=== PATIENT | male | born 1945 ===

== ENCOUNTER 2017-11-27 17:36 | Inpatient (IN) | payer MEDICARE, MEDICAID ==
[2017-11-27] MEDS ORDERED: Morphine 4 MG/ML VIAL IV STA (19:24)
[2017-11-27] MEDS ORDERED: Morphine 4 MG/ML VIAL ONE ×2 (19:35→22:05)
[2017-11-27 19:38] LABS: BASO # 0.1 K/uL (0.0-0.2); BASO % 0.4 % (0.0-2.0); EOS # 0.3 K/uL (0.0-0.7); EOS % 1.7 % (0.0-4.0); LYMPH # 1.2 K/uL (1.0-4.3); LYMPH % 6.5 % (20.0-40.0); MEAN CELL VOLUME 94.2 fL (80.0-94.0); MEAN CORPUSCULAR HEMOGLOBIN 30.1 pg (27.0-31.0); MEAN CORPUSCULAR HGB CONC 31.9 g/dL (33.0-37.0); MEAN PLATELET VOLUME 8.1 fL (7.2-11.7); MONO # 1.1 K/uL (0.0-0.8); MONO % 5.7 % (0.0-10.0); NEUT # 15.9 K/uL (1.8-7.0); NEUT % 85.7 % (50.0-75.0); NRBC % 0.1 % (0.0-2.0); RBC 2.09 Mil/uL (4.40-5.90); RED CELL DISTRIBUTION WIDTH 17.8 % (11.5-14.5)
[2017-11-27 19:41] LABS: INR 1.2
[2017-11-27 19:43] LABS: VENOUS BLOOD GAS BASE EXCESS 1.5 mmol/L (0.0-2.0); VENOUS BLOOD GAS PCO2 43 mmHg (40-60); VENOUS BLOOD GAS PO2 25 mm/Hg (30-55)
[2017-11-27 19:50] LABS: HEMOGLOBIN 6.3 g/dL (12.0-18.0)
[2017-11-27 19:51] LABS: PLATELET COUNT 642 K/uL (130-400); WHITE BLOOD COUNT 18.5 K/uL (4.8-10.8)
[2017-11-27 19:56] LABS: ALB/GLOB RATIO 0.8 (1.0-2.1); ALT/SGPT 44 U/L (21-72); AST/SGOT 39 U/L (17-59); BLOOD UREA NITROGEN 22 mg/dL (9-20); CALCIUM 8.4 mg/dl (8.6-10.4); GFR AFRICAN-AMERICAN > 60; GFR NON-AFRICAN AMERICAN > 60
[2017-11-27] MEDS ORDERED: Morphine 4 MG/ML VIAL IVP PRN (20:37)
[2017-11-27 20:41] LABS: BANDS 1 % (0-2); EOSINOPHIL 3 % (0-4); LYMPHOCYTE 3 % (20-40); MONOCYTE 6 % (0-10); NEUTROPHIL 87 % (50-75); TOTAL CELLS COUNTED 100
[2017-11-27 20:42] LABS: ANISOCYTOSIS SLIGHT; HYPOCHROMIC SLIGHT; PLATELET ESTIMATE INCREASED (NORMAL)
[2017-11-27 20:43] LABS: POLYCHROMIC SLIGHT
--- NOTE | 2017-11-27 20:43 | CP.PCM.HP ---
Addendum entered and electronically signed by Pawan Menjivar DO 11/28/17 03:57: incorrectly stated no elevation in WBC; WBC is 18.5 patient receiving blood products late due to cat scan of LLE w/ contrast; please refer to full report Original Note: <Pawan Menjivar - Last Filed: 11/27/17 21:16> History of Present Illness - History of Present Illness History of Present Illness: CC: None; abnormal labs at care home PMD: states he does not remember Code Status: DNR/DNI; patient is currently lucid, ANOx3, with intact decision making responsibilities; states that son does not make medical decisions for him but if he becomes impaired that he can. Number in computer. This patient is a 72yo [place] Speaking M coming from the care home for abnormal labs. He states he feels fine, and upon questioning is complaining of a nonproductive cough for the past week. He states it is not associated with fevers/chills, [place], CP, SOB, abdominal pain, N/V/D, dysuria/freq/urg, or lower extremity pain. 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 PMHx: peripheral vascular disease s/p RLE AKA 1 year ago, left leg has femoral graft in place which clotted on last admission and AKA on last admission 2017, chronic left foot pressure ulcer, COPD, history of dementia and a left frontal CVA with speech defecits BPH PSHx: RLE AKA 2017, LLE AKA 2018 on last admission Meds: please refer to MAR All: NKDA SHx: As per charts: strong smoking history; denies current smoking at care home, needs help with most ADL not independent in ADL; has sacral ulcer stage 1 on back covered FHx: Unremarkable. Present on Admission - Present on Admission Any Indicators Present on Admission: Yes History of DVT/PE: Yes History of Uncontrolled Diabetes: No Urinary Catheter: No Decubitus Ulcer Present: Yes (above buttocks, stage 1/2) Decubitus Ulcer Stage: I Past Patient History - Infectious Disease Hx of Infectious Diseases: None - Past Social History Smoking Status: Heavy Smoker > 10 Cigarettes Daily - CARDIAC Hx Cardiac Disorders: Yes - PULMONARY Hx Chronic Obstructive Pulmonary Disease (COPD): Yes - NEUROLOGICAL HX Cerebrovascular Accident: Yes (LEFT FRONTAL CVA) - INTEGUMENTARY Hx Last: Yes - MUSCULOSKELETAL/RHEUMATOLOGICAL Hx Falls: No Other/Comment: B/L BKA - GASTROINTESTINAL Hx Constipation: Yes Hx Ulcer: Yes (gastric) - GENITOURINARY/GYNECOLOGICAL Hx Genitourinary Disorders: Yes - PSYCHIATRIC Hx Psychophysiologic Disorder: Yes Hx Substance Use: No - SURGICAL HISTORY Hx Amputation: Yes (b/l BKA) - ANESTHESIA Hx Anesthesia: Yes Hx Anesthesia Reactions: No Hx Malignant Hyperthermia: No Meds Allergies/Adverse Reactions: Allergies Allergy/AdvReac Type Severity Reaction Status Date / Time No Known Allergies Allergy Verified 11/27/17 17:56 Physical Exam - Constitutional Appears: Non-toxic, Chronically Ill (patient is moaning at baseline, states he is not in pain, but he has made sounds like this for many years) - Head Exam Head Exam: NORMAL INSPECTION - Eye Exam Eye Exam: EOMI, PERRL, Scleral icterus - ENT Exam ENT Exam: Mucous Membranes Moist - Neck Exam Neck exam: Positive for: Full Rom, Normal Inspection. Negative for: Lymphadenopathy, Meningismus, Thyromegaly - Respiratory Exam Respiratory Exam: Rhonchi, NORMAL BREATHING PATTERN. absent: Chest Wall Tenderness, Decreased Breath Sounds, Clear to Auscultation Bilateral, Rales, Wheezes, Respiratory Distress, Stridor - Cardiovascular Exam Cardiovascular Exam: REGULAR RHYTHM, +S1, +S2 - GI/Abdominal Exam GI & Abdominal Exam: Normal Bowel Sounds, Soft. absent: Organomegaly (white rash, non blanching, non pruritic, negative nikolsky sign all over abdomen looks like old tape ) - Rectal Exam Rectal Exam: Deferred - Extremities Exam Additional comments: b/l AKA on both sides RLE well healed AKA, no signs of erythema exudate/pain LLE AKA however still has denita in place, large hematoma/ecchymosis present, bleeding slightly onto the sheets, no signs of pus/pain - Back Exam Back exam: NORMAL INSPECTION. absent: CVA tenderness (L), CVA tenderness (R) - Neurological Exam Neurological exam: Alert, Oriented x3 (patient is alert oriented to person place and prachi e) - Psychiatric Exam Psychiatric exam: Anxious (patient is moaning, however responds appropriately to questions, states that moaning is baseline, and that he is not agitated and that this is normal for him) - Skin Skin Exam: Warm (patient is warm to touch) Results - Vital Signs Recent Vital Signs: Last Vital Signs Temp 98 F 11/27/17 17:46 Pulse 96 H 11/27/17 17:46 Resp 20 11/27/17 17:46 BP 131/49 L 11/27/17 19:40 Pulse Ox 100 11/27/17 17:46 - Labs Result Diagrams: 11/27/17 19:30 11/27/17 19:30 Labs: Laboratory Results - last 24 hr 11/27/17 11/27/17 11/27/17 19:30 19:30 19:30 WBC 18.5 H D RBC 2.09 L Hgb 6.3 L* D Hct 19.7 L MCV 94.2 H D MCH 30.1 MCHC 31.9 L RDW 17.8 H Plt Count 642 H D MPV 8.1 Neut % (Auto) 85.7 H Lymph % (Auto) 6.5 L [place] % (Auto) 5.7 Eos % (Auto) 1.7 Baso % (Auto) 0.4 Neut # (Auto) 15.9 H Lymph # (Auto) 1.2 [place] # (Auto) 1.1 H Eos # (Auto) 0.3 Baso # (Auto) 0.1 PT 13.0 H INR 1.2 APTT 31 pO2 VBG pH VBG pCO2 VBG HCO3 VBG Total CO2 VBG O2 Sat (Calc) VBG Base Excess VBG Potassium Glucose Lactate Sodium 140 Potassium 4.2 Chloride 103 Carbon Dioxide 23 Anion Gap 18 BUN 22 H Creatinine 0.7 L Est GFR ( Amer) > 60 Est GFR (Non-Af Amer) > 60 Random Glucose 151 H Calcium 8.4 L Total Bilirubin 0.8 AST 39 ALT 44 Alkaline Phosphatase 163 H D Total Protein 6.9 Albumin 3.0 L Globulin 3.8 Albumin/Globulin Ratio 0.8 L Venous Blood Potassium 11/27/17 19:35 WBC RBC Hgb Hct MCV MCH MCHC RDW Plt Count MPV Neut % (Auto) Lymph % (Auto) [place] % (Auto) Eos % (Auto) Baso % (Auto) Neut # (Auto) Lymph # (Auto) [place] # (Auto) Eos # (Auto) Baso # (Auto) PT INR APTT pO2 25 L VBG pH 7.40 VBG pCO2 43 VBG HCO3 24.7 VBG Total CO2 27.9 VBG O2 Sat (Calc) 42.1 VBG Base Excess 1.5 VBG Potassium 4.0 Glucose 165 H Lactate 2.0 Sodium 141.0 Potassium Chloride 109.0 H Carbon Dioxide Anion Gap BUN Creatinine Est GFR ( Amer) Est GFR (Non-Af Amer) Random Glucose Calcium Total Bilirubin AST ALT Alkaline Phosphatase Total Protein Albumin Globulin Albumin/Globulin Ratio Venous Blood Potassium 4.0 Assessment & Plan - Assessment and Plan (Free Text) Assessment: 72yo M admitted for acute anemia with elevated lactate and temperature (code sepsis) Acute Anemia most likely from AKA LLE -on exam ecchymotic, denita in place, bleeding slightly onto the sheets -will hold all anticoagulation for now -Vascular Surgery; Dr. Padilla; appreciate help -HgB currently 6.8; will transfuse 2 units; patient normally around 9-10 -will f/u CBC serially -telemetry -patient otherwise stable with no complaints -rectal exam showed no blood; will f/u FOBT Code Sepsis -unknown source of infection -tachycardic most likely from blood loss, no elevated WBC, no pain on exam; lactate probably from acute blood loss as well -Chest X-Ray shows no obvious infiltrate -f/u UA -f/u blood culture -f/u procalcitonin -will give empiric Vancomycin 1g Q12H and Zosyn 3.375 Q6H PAD; chronic -will be holding anticoagulation for now -appreciate vascular surgery recs Sacral Ulcer; stage 1; chronic -wound care -patient is bed bound -reposition every 2 hours -PT/OT eval and treat Proph -GI prophylaxis not indicated -contraindication to anticoagulation with low hgb discussed with Dr. Abigail Menjivar PGY2 Decision To Admit - Pt Status Changed To: Hospital Disposition Of: Inpatient - Admit Certification Admit to Inpatient:: After my assessment, the patient will require hospitalization for at least two midnights. This is because of the severity of symptoms shown, intensity of services needed, and/or the medical risk in this patient being treated as an outpatient. - InPatient: Physician Admission Certification:: patient with AKA LLE sepsis acute blood loss - . Bed Request Type: Telemetry Admitting Physician: Maurizio Hayes <Maurizio Hayes - Last Filed: 11/28/17 06:00> Results - Vital Signs Recent Vital Signs: Last Vital Signs Temp 98.6 F 11/28/17 05:35 Pulse 99 H 11/28/17 05:35 Resp 20 11/28/17 05:35 BP 118/72 11/28/17 05:35 Pulse Ox 20 L 11/28/17 05:39 - Labs Result Diagrams: 11/27/17 19:30 11/27/17 19:30 Labs: Laboratory Results - last 24 hr 11/27/17 11/27/17 11/27/17 19:30 19:30 19:30 WBC 18.5 H D RBC 2.09 L Hgb 6.3 L* D Hct 19.7 L MCV 94.2 H D MCH 30.1 MCHC 31.9 L RDW 17.8 H Plt Count 642 H D MPV 8.1 Neut % (Auto) 85.7 H Lymph % (Auto) 6.5 L [place] % (Auto) 5.7 Eos % (Auto) 1.7 Baso % (Auto) 0.4 Neut # (Auto) 15.9 H Lymph # (Auto) 1.2 [place] # (Auto) 1.1 H Eos # (Auto) 0.3 Baso # (Auto) 0.1 Neutrophils % (Manual) 87 H Band Neutrophils % 1 Lymphocytes % (Manual) 3 L Monocytes % (Manual) 6 Eosinophils % (Manual) 3 Platelet Estimate Increased H Polychromasia Slight Hypochromasia (manual) Slight Anisocytosis (manual) Slight PT 13.0 H INR 1.2 APTT 31 pO2 VBG pH VBG pCO2 VBG HCO3 VBG Total CO2 VBG O2 Sat (Calc) VBG Base Excess VBG Potassium Glucose Lactate Sodium 140 Potassium 4.2 Chloride 103 Carbon Dioxide 23 Anion Gap 18 BUN 22 H Creatinine 0.7 L Est GFR ( Amer) > 60 Est GFR (Non-Af Amer) > 60 Random Glucose 151 H Calcium 8.4 L Total Bilirubin 0.8 AST 39 ALT 44 Alkaline Phosphatase 163 H D Total Protein 6.9 Albumin 3.0 L Globulin 3.8 Albumin/Globulin Ratio 0.8 L Venous Blood Potassium Urine Color Urine Clarity Urine pH Ur Specific [place] Urine Protein Urine Glucose (UA) Urine Ketones Urine Blood Urine Nitrate Urine Bilirubin Urine Urobilinogen Ur Leukocyte Esterase Urine WBC (Auto) Urine RBC (Auto) Ur Squamous Epith Cells Urine Bacteria Blood Type Antibody Screen Antibody Identification Antibody ID (Elution) ARIANNE, Poly Interpret 11/27/17 11/27/17 11/27/17 19:35 20:24 20:37 WBC RBC Hgb Hct MCV MCH MCHC RDW Plt Count MPV Neut % (Auto) Lymph % (Auto) [place] % (Auto) Eos % (Auto) Baso % (Auto) Neut # (Auto) Lymph # (Auto) [place] # (Auto) Eos # (Auto) Baso # (Auto) Neutrophils % (Manual) Band Neutrophils % Lymphocytes % (Manual) Monocytes % (Manual) Eosinophils % (Manual) Platelet Estimate Polychromasia Hypochromasia (manual) Anisocytosis (manual) PT INR APTT pO2 25 L VBG pH 7.40 VBG pCO2 43 VBG HCO3 24.7 VBG Total CO2 27.9 VBG O2 Sat (Calc) 42.1 VBG Base Excess 1.5 VBG Potassium 4.0 Glucose 165 H Lactate 2.0 Sodium 141.0 Potassium Chloride 109.0 H Carbon Dioxide Anion Gap BUN Creatinine Est GFR ( Amer) Est GFR (Non-Af Amer) Random Glucose Calcium Total Bilirubin AST ALT Alkaline Phosphatase Total Protein Albumin Globulin Albumin/Globulin Ratio Venous Blood Potassium 4.0 Urine Color Yellow Urine Clarity Hazy Urine pH 5.0 Ur Specific [place] 1.027 Urine Protein 1+ H Urine Glucose (UA) Normal Urine Ketones Trace Urine Blood Negative Urine Nitrate Negative Urine Bilirubin Negative Urine Urobilinogen 4.0 Ur Leukocyte Esterase Trace Urine WBC (Auto) 10 H Urine RBC (Auto) 1 Ur Squamous Epith Cells 2 Urine Bacteria Rare Blood Type O POSITIVE Antibody Screen Positive Antibody Identification Anti Jka Antibody ID (Elution) WARM AUTO ANTIBODY ARIANNE, Poly Interpret Positive H 11/27/17 22:30 WBC RBC Hgb Hct MCV MCH MCHC RDW Plt Count MPV Neut % (Auto) Lymph % (Auto) [place] % (Auto) Eos % (Auto) Baso % (Auto) Neut # (Auto) Lymph # (Auto) [place] # (Auto) Eos # (Auto) Baso # (Auto) Neutrophils % (Manual) Band Neutrophils % Lymphocytes % (Manual) Monocytes % (Manual) Eosinophils % (Manual) Platelet Estimate Polychromasia Hypochromasia (manual) Anisocytosis (manual) PT INR APTT pO2 20 L VBG pH 7.42 VBG pCO2 43 VBG HCO3 25.4 VBG Total CO2 29.2 H VBG O2 Sat (Calc) 35.4 L VBG Base Excess 2.9 H VBG Potassium 4.2 Glucose 143 H Lactate 1.1 Sodium 142.0 Potassium Chloride 112.0 H Carbon Dioxide Anion Gap BUN Creatinine Est GFR ( Amer) Est GFR (Non-Af Amer) Random Glucose Calcium Total Bilirubin AST ALT Alkaline Phosphatase Total Protein Albumin Globulin Albumin/Globulin Ratio Venous Blood Potassium 4.2 Urine Color Urine Clarity Urine pH Ur Specific [place] Urine Protein Urine Glucose (UA) Urine Ketones Urine Blood Urine Nitrate Urine Bilirubin Urine Urobilinogen Ur Leukocyte Esterase Urine WBC (Auto) Urine RBC (Auto) Ur Squamous Epith Cells Urine Bacteria Blood Type Antibody Screen Antibody Identification Antibody ID (Elution) ARIANNE, Poly Interpret Assessment & Plan - Date & Time Date: 11/28/17 (I have seen and examined the patient. I agree with the findings and plan of care as documented by Dr. Menjivar. Patient with acute anemia. Hemoccult negative. Transfuse 2 units PRBCs. Blood and dried blood noted from AKA site. Appears red and irritated at denita. Code sepsis called in ED. Ripo and Marie for now. Blood cultures. Hemodynamically stable. Monitor for acute changes.) Time: 05:58 Attending/Attestation - Attestation I have personally seen and examined this patient.: Yes I have fully participated in the care of the patient.: Yes I have reviewed all pertinent clinical information: Yes
[2017-11-27 20:52] LABS: SQUAMOUS EPITHIAL 2 /hpf (0-5); URINE BACTERIA RARE (<OCC); URINE BILIRUBIN NEGATIVE (NEGATIVE); URINE BLOOD NEGATIVE (NEGATIVE); URINE CLARITY Hazy (Clear); URINE GLUCOSE (UA) NORMAL (Normal); URINE LEUKOCYTE ESTERASE TRACE Leu/uL (Negative); URINE PROTEIN 1+ mg/dL (NEGATIVE)
[2017-11-27 20:55] LABS: URINE COLOR YELLOW (YELLOW)
[2017-11-27] MEDS ORDERED: Vancomycin 1 gm/NS 200 ml 1 GM/200 ML BAG IVPB ONE (21:00)
[2017-11-27 22:37] LABS: VENOUS BLOOD GAS BASE EXCESS 2.9 mmol/L (0.0-2.0); VENOUS BLOOD GAS PCO2 43 mmHg (40-60); VENOUS BLOOD GAS PO2 20 mm/Hg (30-55); VENOUS BLOOD PH 7.42 (7.32-7.43)
--- NOTE | 2017-11-28 00:58 | C.PDOC ---
History Of Present Illness 72 year old male sent [facility] ER by [facility] for "abnormal labs". Patient had blood drawn today which showed elevated WBC and low hemoglobin. Patient has a Hx of left AKA and offers no complaints at this time; there is no record of fever as per [facility]. Patient is a poor historian. Chief Complaint (Nursing): Abnormal Labs History Per: Patient History/Exam Limitations: no limitations Onset/Duration Of Symptoms: Days Current Symptoms Are (Timing): Still Present Recent travel outside of the [place]: No Past Medical History Reviewed: Historical Data, Nursing Documentation, Vital Signs Vital Signs: Last Vital Signs Temp 98.5 F 11/28/17 04:35 Pulse 114 H 11/28/17 04:35 Resp 20 11/28/17 04:35 BP 122/68 11/28/17 04:35 Pulse Ox 20 L 11/28/17 01:26 - Medical History PMH: COPD, CVA, Dementia - [facility] Procedures DETACHMENT AT LEFT UPPER LEG, LOW, OPEN APPROACH (10/07/17) Family History: States: Unknown Family Hx - Social History Hx Alcohol Use: No Hx Substance Use: No - Immunization History Hx Influenza Vaccination: Yes (2017) Hx Pneumococcal Vaccination: Yes (2017) Review Of Systems Constitutional: Negative for: Fever Cardiovascular: Negative for: Chest Pain, Palpitations Respiratory: Negative for: Cough, Shortness of Breath Gastrointestinal: Negative for: Nausea, Vomiting Musculoskeletal: Positive for: Other (Left AKA) Physical Exam - Physical Exam Appears: Non-toxic Skin: Warm, Dry Head: Atraumatic, Normacephalic Eye(s): bilateral: Conjunctiva Pale Oral Mucosa: Moist Chest: Symmetrical, No Tenderness Cardiovascular: Rhythm Regular Respiratory: Normal Breath Sounds, No Rales, No Rhonchi, No Wheezing Gastrointestinal/Abdominal: Soft, No Tenderness Rectal: Rectal Tone (Good), Other (Guaiac negative. Brown stools) Male Genital: Other (Left AKA with surgical denita, skin break down and ecchymosis around denita) Neurological/Psych: Oriented x3, Normal Speech ED Course And Treatment - Laboratory Results Result Diagrams: 11/27/17 19:30 11/27/17 19:30 ECG: Interpreted By Me, Viewed By Me ECG Rhythm: Sinus Bradycardia ECG Interpretation: Normal Interpretation Of ECG: Left axis deviation, 1st degree av block Rate From EC O2 Sat by Pulse Oximetry: 20 Progress Note: Code sepsis called, antibiotics started, IV fluids of sepsis protocol held due to coronary disease, patient hemodynamically stable. Case discussed with the hospitalist who accepts patient for admission. Disposition - Disposition Disposition: HOSPITALIZED Disposition Time: 19:25 Condition: FAIR - Clinical Impression Clinical Impression: S/P AKA (above knee amputation), Anemia, Cellulitis, Atherosclerotic PVD with ulceration - Scribe Statement The provider has reviewed the documentation as recorded by the Scribrobbie Jaramillo All medical record entries made by the Rachelibrobbie were at my direction and personally dictated by me. I have reviewed the chart and agree that the record accurately reflects my personal performance of the history, physical exam, medical decision making, and the department course for this patient. I have also personally directed, reviewed, and agree with the discharge instructions and disposition.
--- NOTE | 2017-11-28 01:38 | CP.PCM.CON ---
History of Present Illness - History of Present Illness History of Present Illness: Surgery consult note for Dr. Padilla Consulted for: Infected left AKA site HPI limited d/t patient's altered communication skills from stroke Patient is a 72M with PMH of severe PVD and PSH of BL vascular interventsion wiht bypass graft of the left lower extremity and BL AKA. Patient had been inpatient 10/12 for severe peripheral vascular disease due an occluided bypass graft of the left leg. Patient had an AKA at that time. patient is sent to ER for lab abnormalities from care home, with concern for sepsis on presentation and severe anemia. Left leg surgery site has necrotic tissue and is expressing purulent material and is pain. Patient reports pain at that site but denies fevers or chills. Patient's wound was opened, flushed wiht sterile water and betadine, and packed with gauze. Review of Systems - Review of Systems Systems not reviewed;Unavailable: Altered Mental Status, Language Barrier Past Patient History - Infectious Disease Hx of Infectious Diseases: None - Past Medical History & Family History Past Medical History?: Yes - Past Social History Smoking Status: Heavy Smoker > 10 Cigarettes Daily - CARDIAC Hx Cardiac Disorders: Yes - PULMONARY Hx Chronic Obstructive Pulmonary Disease (COPD): Yes - NEUROLOGICAL Hx Dementia: Yes - HEENT Hx HEENT Problems: No - RENAL Hx Chronic Kidney Disease: No - ENDOCRINE/METABOLIC Hx Endocrine Disorders: No - HEMATOLOGICAL/ONCOLOGICAL Hx Blood Disorders: No - INTEGUMENTARY Hx Dermatological Problems: Yes Hx Last: Yes - MUSCULOSKELETAL/RHEUMATOLOGICAL Hx Musculoskeletal Disorders: Yes Hx Falls: No Other/Comment: B/L BKA - GASTROINTESTINAL Hx Gastrointestinal Disorders: Yes Hx Constipation: Yes Hx Ulcer: Yes (gastric) - GENITOURINARY/GYNECOLOGICAL Hx Genitourinary Disorders: Yes - PSYCHIATRIC Hx Substance Use: No - SURGICAL HISTORY Hx Surgeries: Yes Hx Amputation: Yes (b/l BKA) - ANESTHESIA Hx Anesthesia: Yes Hx Anesthesia Reactions: No Hx Malignant Hyperthermia: No Meds Allergies/Adverse Reactions: Allergies Allergy/AdvReac Type Severity Reaction Status Date / Time No Known Allergies Allergy Verified 11/27/17 17:56 - Medications Medications: Current Medications Acetaminophen (Tylenol 325mg Tab) 650 mg PO Q6 PRN PRN Reason: Fever >100.4 F Acetaminophen (Tylenol 325mg Tab) 975 mg PO Q6 PRN PRN Reason: MILD-MODERATE PAIN Albuterol/Ipratropium (Duoneb 3 Mg/0.5 Mg (3 Ml) Ud) 3 ml INH RQ6 WAQAR Docusate Sodium (Colace) 100 mg PO TID WAQAR Gabapentin (Neurontin) 600 mg PO TID WAQAR Piperacillin Sod/Tazobactam (Sod 3.375 gm/ Sodium Chloride) 100 mls @ 200 mls/ hr IVPB Q6H WAQAR PRN Reason: Protocol Vancomycin/Sodium Chloride (Vancomycin 1 Gm/Ns 200 Ml) 1 gm in 200 mls @ 133 mls/hr IVPB Q12H WAQAR PRN Reason: Protocol Stop: 12/03/17 10:01 Morphine Sulfate (Morphine) 1 mg IVP Q6H PRN PRN Reason: Pain, severe (8-10) Last Admin: 11/27/17 22:08 Dose: 1 mg Ondansetron HCl (Zofran Inj) 4 mg IVP Q6 PRN PRN Reason: Nausea/Vomiting Tamsulosin HCl (Flomax) 0.4 mg PO DAILY [facility] Physical Exam - Constitutional Appears: Non-toxic, In Acute Distress, Chronically Ill - Head Exam Head Exam: ATRAUMATIC, NORMOCEPHALIC - Eye Exam Eye Exam: Normal appearance. absent: Conjunctival injection, Scleral icterus - ENT Exam ENT Exam: Mucous Membranes Moist - Respiratory Exam Respiratory Exam: NORMAL BREATHING PATTERN. absent: Accessory Muscle Use, Respiratory Distress - Cardiovascular Exam Cardiovascular Exam: RRR - GI/Abdominal Exam GI & Abdominal Exam: Soft. absent: Distended, Tenderness - Extremities Exam Additional comments: left AKA site with dark necrotic tissue present around the incision and purulent fluid expressed, subcutaneous track explored with q tip extending at leas 7cm proximally on the medial leg. - Neurological Exam Neurological exam: Alert - Psychiatric Exam Psychiatric exam: Agitated - Skin Skin Exam: Dry, Normal Color, Warm Additional comments: except as noted above Results - Vital Signs Recent Vital Signs: Last Vital Signs Temp 98.9 F 11/28/17 01:04 Pulse 124 H 11/28/17 01:04 Resp 20 11/28/17 01:04 BP 148/68 11/28/17 01:04 Pulse Ox 20 L 11/28/17 01:26 - Labs Result Diagrams: 11/27/17 19:30 11/27/17 19:30 Labs: Laboratory Results - last 24 hr 11/27/17 11/27/17 11/27/17 19:30 19:30 19:30 WBC 18.5 H D RBC 2.09 L Hgb 6.3 L* D Hct 19.7 L MCV 94.2 H D MCH 30.1 MCHC 31.9 L RDW 17.8 H Plt Count 642 H D MPV 8.1 Neut % (Auto) 85.7 H Lymph % (Auto) 6.5 L [place] % (Auto) 5.7 Eos % (Auto) 1.7 Baso % (Auto) 0.4 Neut # (Auto) 15.9 H Lymph # (Auto) 1.2 [place] # (Auto) 1.1 H Eos # (Auto) 0.3 Baso # (Auto) 0.1 Neutrophils % (Manual) 87 H Band Neutrophils % 1 Lymphocytes % (Manual) 3 L Monocytes % (Manual) 6 Eosinophils % (Manual) 3 Platelet Estimate Increased H Polychromasia Slight Hypochromasia (manual) Slight Anisocytosis (manual) Slight PT 13.0 H INR 1.2 APTT 31 pO2 VBG pH VBG pCO2 VBG HCO3 VBG Total CO2 VBG O2 Sat (Calc) VBG Base Excess VBG Potassium Glucose Lactate Sodium 140 Potassium 4.2 Chloride 103 Carbon Dioxide 23 Anion Gap 18 BUN 22 H Creatinine 0.7 L Est GFR ( Amer) > 60 Est GFR (Non-Af Amer) > 60 Random Glucose 151 H Calcium 8.4 L Total Bilirubin 0.8 AST 39 ALT 44 Alkaline Phosphatase 163 H D Total Protein 6.9 Albumin 3.0 L Globulin 3.8 Albumin/Globulin Ratio 0.8 L Venous Blood Potassium Urine Color Urine Clarity Urine pH Ur Specific [place] Urine Protein Urine Glucose (UA) Urine Ketones Urine Blood Urine Nitrate Urine Bilirubin Urine Urobilinogen Ur Leukocyte Esterase Urine WBC (Auto) Urine RBC (Auto) Ur Squamous Epith Cells Urine Bacteria Blood Type Antibody Screen Antibody Identification ARIANNE, Poly Interpret 11/27/17 11/27/17 11/27/17 19:35 20:24 20:37 WBC RBC Hgb Hct MCV MCH MCHC RDW Plt Count MPV Neut % (Auto) Lymph % (Auto) [place] % (Auto) Eos % (Auto) Baso % (Auto) Neut # (Auto) Lymph # (Auto) [place] # (Auto) Eos # (Auto) Baso # (Auto) Neutrophils % (Manual) Band Neutrophils % Lymphocytes % (Manual) Monocytes % (Manual) Eosinophils % (Manual) Platelet Estimate Polychromasia Hypochromasia (manual) Anisocytosis (manual) PT INR APTT pO2 25 L VBG pH 7.40 VBG pCO2 43 VBG HCO3 24.7 VBG Total CO2 27.9 VBG O2 Sat (Calc) 42.1 VBG Base Excess 1.5 VBG Potassium 4.0 Glucose 165 H Lactate 2.0 Sodium 141.0 Potassium Chloride 109.0 H Carbon Dioxide Anion Gap BUN Creatinine Est GFR ( Amer) Est GFR (Non-Af Amer) Random Glucose Calcium Total Bilirubin AST ALT Alkaline Phosphatase Total Protein Albumin Globulin Albumin/Globulin Ratio Venous Blood Potassium 4.0 Urine Color Yellow Urine Clarity Hazy Urine pH 5.0 Ur Specific [place] 1.027 Urine Protein 1+ H Urine Glucose (UA) Normal Urine Ketones Trace Urine Blood Negative Urine Nitrate Negative Urine Bilirubin Negative Urine Urobilinogen 4.0 Ur Leukocyte Esterase Trace Urine WBC (Auto) 10 H Urine RBC (Auto) 1 Ur Squamous Epith Cells 2 Urine Bacteria Rare Blood Type O POSITIVE Antibody Screen Positive Antibody Identification Anti Jka ARIANNE, Poly Interpret Positive H 11/27/17 22:30 WBC RBC Hgb Hct MCV MCH MCHC RDW Plt Count MPV Neut % (Auto) Lymph % (Auto) [place] % (Auto) Eos % (Auto) Baso % (Auto) Neut # (Auto) Lymph # (Auto) [place] # (Auto) Eos # (Auto) Baso # (Auto) Neutrophils % (Manual) Band Neutrophils % Lymphocytes % (Manual) Monocytes % (Manual) Eosinophils % (Manual) Platelet Estimate Polychromasia Hypochromasia (manual) Anisocytosis (manual) PT INR APTT pO2 20 L VBG pH 7.42 VBG pCO2 43 VBG HCO3 25.4 VBG Total CO2 29.2 H VBG O2 Sat (Calc) 35.4 L VBG Base Excess 2.9 H VBG Potassium 4.2 Glucose 143 H Lactate 1.1 Sodium 142.0 Potassium Chloride 112.0 H Carbon Dioxide Anion Gap BUN Creatinine Est GFR ( Amer) Est GFR (Non-Af Amer) Random Glucose Calcium Total Bilirubin AST ALT Alkaline Phosphatase Total Protein Albumin Globulin Albumin/Globulin Ratio Venous Blood Potassium 4.2 Urine Color Urine Clarity Urine pH Ur Specific [place] Urine Protein Urine Glucose (UA) Urine Ketones Urine Blood Urine Nitrate Urine Bilirubin Urine Urobilinogen Ur Leukocyte Esterase Urine WBC (Auto) Urine RBC (Auto) Ur Squamous Epith Cells Urine Bacteria Blood Type Antibody Screen Antibody Identification ARIANNE, Poly Interpret Assessment & Plan - Assessment and Plan (Free Text) Assessment: 72M with infected left AKA site and severe anemia Plan: -Patient will need surgical debridement for healing--will discuss with patient and family about level of intervention they would like -follow up wound cultures -PRN pain medication -IV antibiotics -1 unit PRBC given--f/u hemoglobin in AM Discussed with Randy--further recs per him Elsie Suero, PGY-2
[2017-11-28] MEDS ORDERED: Iohexol 350mg/ml 100 ML ONE (02:12)
[2017-11-28] MEDS ORDERED: DiphenhydrAMINE 50 mg/ml Inj IVP STA (03:01)
--- NOTE | 2017-11-28 03:50 | CT ---
EXAM: CT of the Left Lower Extremity With Intravenous Contrast CLINICAL HISTORY: 72 years old, male; Pain; Thigh; Left; Prior surgery; Surgery type: Left lower leg amputation; Patient HX: 10-07-17 images sent; Additional info: Pus/pain lle/cold TECHNIQUE: Axial computed tomography images of the left lower extremity with intravenous contrast during the arterial phase of contrast enhancement. All CT scans at this facility use one or more dose reduction techniques, viz.: automated exposure control; ma/kV adjustment per patient size (including targeted exams where dose is matched to indication; i.e. head); or iterative reconstruction technique. Coronal and sagittal reformatted images were created and reviewed. CONTRAST: 100 mL of [id number] administered intravenously. COMPARISON: No relevant prior studies available. FINDINGS: VASCULATURE: Left iliac arteries: Atherosclerotic disease of visualized right and left iliac arteries. Stent within left external iliac artery. Occlusion of left external and internal iliac arteries. Occlusion of visualized right external and internal iliac arteries. Left femoral/popliteal arteries: Occlusion of left common femoral and superficial femoral arteries. Occluded left femoral graft. LOWER EXTREMITY: Bones/joints: [id number] amputation. No acute fracture. No dislocation. Degenerative changes of lower lumbar spine. Few small foci of air with within medullary cavity of femur at level of resection. Soft tissues: Skin denita. Several foci of air within soft tissues of distal stump. Small amount of high density material about soft tissue air. Few small serpentine hyperdense foci within posterior musculature of distal thigh. Linear stranding within left inguinal region. Small LEFT inguinal hernia containing fat. Bladder: Moderate bladder wall thickening. Incomplete distention, limiting evaluation. IMPRESSION: 1. Occlusion of kiana arteries and grafts within left thigh. 2. Air about the resected femur and stump, likely postsurgical. Soft tissue infection not entirely excluded. 3. High-density material about soft tissue air within distal stump may represent hemorrhage or postsurgical changes. Clinical correlation is needed. 4. Linear serpentine foci within musculature of distal thigh there are present hemorrhage or calcifications. 5. Apparent bladder wall thickening. Clinical correlation is needed. 6. Incidental/non-acute findings are described above.
[2017-11-28] MEDS: Piperacillin/Tazobact 3.375 GM in Sodium Chloride 100 ML IVPB SCH ×5 (04:16→23:27)
--- NOTE | 2017-11-28 07:19 | RAD ---
Chest x-ray single frontal view History: Infiltrate. Comparison: None available. Findings: Small rounded nodular density seen at the lateral aspect of the left mid lung zone which may represent small nodule and or granuloma versus prominent vessel on end. Correlation with prior study if available would be helpful. Alternatively, correlation with chest CT may be helpful. Mild venous congestion. Biapical pleural thickening with upper lobe granulomatous changes. Left hilar prominence. Mild calcification at aortic knob. Tortuous aorta. Degenerative changes in the spine and shoulders. Impression: Small rounded nodular density seen at the lateral aspect of the left mid lung zone which may represent small nodule and or granuloma versus prominent vessel on end. Correlation with prior study if available would be helpful. Alternatively, correlation with chest CT may be helpful. Mild venous congestion. Biapical pleural thickening with upper lobe granulomatous changes. Left hilar prominence. Mild calcification at aortic knob. Tortuous aorta. Degenerative changes in the spine and shoulders.
[2017-11-28] MEDS: Vancomycin 1 gm/NS 200 ml 1 GM/200 ML BAG IVPB SCH ×2 (09:18→21:08)
[2017-11-28] MEDS: Morphine 15 mg SR Tab PO SCH ×2 (11:20→23:30)
[2017-11-28 11:29] LABS: BASO # 0.1 K/uL (0.0-0.2); BASO % 0.4 % (0.0-2.0); EOS % 0.2 % (0.0-4.0); HEMOGLOBIN 7.2 g/dL (12.0-18.0); LYMPH # 1.4 K/uL (1.0-4.3); LYMPH % 7.6 % (20.0-40.0); MEAN CORPUSCULAR HEMOGLOBIN 30.7 pg (27.0-31.0); MEAN CORPUSCULAR HGB CONC 33.7 g/dL (33.0-37.0); MEAN PLATELET VOLUME 8.5 fL (7.2-11.7); MONO # 1.2 K/uL (0.0-0.8); MONO % 6.2 % (0.0-10.0); NEUT # 16.1 K/uL (1.8-7.0); NEUT % 85.6 % (50.0-75.0); NRBC % 0.1 % (0.0-2.0); PLATELET COUNT 577 K/uL (130-400); RBC 2.34 Mil/uL (4.40-5.90); RED CELL DISTRIBUTION WIDTH 17.2 % (11.5-14.5); WHITE BLOOD COUNT 18.8 K/uL (4.8-10.8)
[2017-11-28 11:33] LABS: MEAN CELL VOLUME 90.9 fL (80.0-94.0)
[2017-11-28 12:23] LABS: AST/SGOT 34 U/L (17-59); BLOOD UREA NITROGEN 16 mg/dL (9-20); CALCIUM 8.5 mg/dl (8.6-10.4); GFR AFRICAN-AMERICAN > 60; GFR NON-AFRICAN AMERICAN > 60
[2017-11-28 12:39] LABS: ANISOCYTOSIS SLIGHT; BANDS 6 % (0-2); HYPOCHROMIC SLIGHT; LYMPHOCYTE 8 % (20-40); MONOCYTE 8 % (0-10); NEUTROPHIL 78 % (50-75); PLATELET ESTIMATE INCREASED (NORMAL); TOTAL CELLS COUNTED 100
[2017-11-28 12:47] LABS: ALB/GLOB RATIO 0.7 (1.0-2.1); ALT/SGPT 38 U/L (21-72)
--- NOTE | 2017-11-28 13:27 | CP.PCM.PN ---
Subjective - Date & Time of Evaluation Date of Evaluation: 11/28/17 Time of Evaluation: 13:23 - Subjective Subjective: patient seen and examined at bedside Complaining of L. leg pain. denies any chest pain or abdominal pain. Does not seem to be completely aware No other complaints at this time Objective - Vital Signs/Intake and Output Vital Signs (last 24 hours): Temp Pulse Resp BP Pulse Ox 102.3 F H 107 H 22 108/40 L 95 11/28/17 08:26 11/28/17 08:19 11/28/17 08:19 11/28/17 08:19 11/28/17 08:19 Intake and Output: 11/28/17 11/28/17 06:59 18:59 Intake Total 278 Output Total 200 Balance 78 - Medications Medications: Current Medications Albuterol/Ipratropium (Duoneb 3 Mg/0.5 Mg (3 Ml) Ud) 3 ml INH RQ6 WAQAR Docusate Sodium (Colace) 100 mg PO TID [facility] Last Admin: 11/28/17 09:19 Dose: 100 mg Piperacillin Sod/Tazobactam (Sod 3.375 gm/ Sodium Chloride) 100 mls @ 200 mls/ hr IVPB Q6H WAQAR PRN Reason: Protocol Last Admin: 11/28/17 11:12 Dose: 200 mls/hr Vancomycin/Sodium Chloride (Vancomycin 1 Gm/Ns 200 Ml) 1 gm in 200 mls @ 133 mls/hr IVPB Q12H WAQAR PRN Reason: Protocol Stop: 12/03/17 10:01 Last Admin: 11/28/17 09:18 Dose: 133 mls/hr Morphine Sulfate (Morphine Extended Release Tab) 15 mg PO Q12 [facility] Last Admin: 11/28/17 11:20 Dose: 15 mg Tamsulosin HCl (Flomax) 0.4 mg PO DAILY [facility] Last Admin: 11/28/17 09:19 Dose: 0.4 mg - Labs Labs: 11/28/17 11:15 11/28/17 11:15 PT 13.0 SECONDS (9.7-12.2) H 11/27/17 19:30 INR 1.2 11/27/17 19:30 APTT 31 SECONDS (21-34) 11/27/17 19:30 - Constitutional Appears: Non-toxic - Head Exam Head Exam: ATRAUMATIC, NORMAL INSPECTION, NORMOCEPHALIC - Eye Exam Eye Exam: EOMI, Normal appearance, PERRL Pupil Exam: NORMAL ACCOMODATION, PERRL - ENT Exam ENT Exam: Mucous Membranes Moist, Normal Exam - Neck Exam Neck Exam: Full ROM, Normal Inspection. absent: Lymphadenopathy - Respiratory Exam Respiratory Exam: Clear to Ausculation Bilateral, NORMAL BREATHING PATTERN - Cardiovascular Exam Cardiovascular Exam: REGULAR RHYTHM, +S1, +S2. absent: Murmur - GI/Abdominal Exam GI & Abdominal Exam: Soft, Normal Bowel Sounds. absent: Distended, Tenderness - Extremities Exam Additional comments: L. amputation with necrotic tissue surrounding staple line, no crepitus - Back Exam Back Exam: NORMAL INSPECTION - Neurological Exam Neurological Exam: Alert, Awake, CN II-XII Intact, Normal Gait - Psychiatric Exam Psychiatric exam: Normal Affect, Normal Mood - Skin Skin Exam: Dry, Intact, Normal Color, Warm Assessment and Plan (1) S/P AKA (above knee amputation) Assessment & Plan: Infection of the stump F/U wound culture Surgery ([place]) Wound has been opened and packing left on vanco and zosyn will follow up surgery reccs Morphine ER 15 PO Q12 for pain Status: Acute (2) Anemia Assessment & Plan: transfused 2 units, follow up @ 2200 Status: Acute (3) Prophylactic measure Assessment & Plan: Hold anticoag due to bleeding SCD CI No GI PPX indicated at this time Status: Acute
--- NOTE | 2017-11-28 14:39 | CP.PCM.CON ---
History of Present Illness - History of Present Illness History of Present Illness: palliative consult requested by Doctor Brittney for Code status discussion Patient is a 72 yo male admitted from [place] with Hb 6.3 and WBC 18.8. 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 Doctor Randy was consulted on this admission and surgical debridement for wound healing is pending. Wound C&S results are pending. Ripo and Marie IV on board. PMH: COPD, CVA,dementia, right AKA, Left AKA Soc. Hx: single, long term resident, has nephew who is involved in care ( Fabian Tejeda [phone]) Fam. Hx: denies Review of Systems - Constitutional Constitutional: Weakness - EENT Eyes: absent: As Per HPI, Blind Spots, Blurred Vision, Change in Vision, Decreased Night Vision, Diplopia, Discharge, Dry Eye, Exophthalmos, Floaters, Irritation, Itchy Eyes, Loss of Peripheral Vision, Pain, Photophobia, Requires Corrective Lenses, Sees Flashes, Spots in Vision, Tunnel Vision, Other Visual Disturbances, Loss of Vision, Other Ears: absent: As Per HPI, Decreased Hearing, Ear Discharge, Ear Pain, Tinnitus, Abnormal Hearing, Disequilibrium, Dizziness, Other Nose/Mouth/Throat: absent: As Per HPI, Epistaxis, Nasal Congestion, Nasal Discharge, Nasal Obstruction, Nasal Trauma, Nose Pain, Post Nasal Drip, Sinus Pain, Sinus Pressure, Bleeding Gums, Change in Voice, Dental Pain, Dry Mouth, Dysphagia, Halitosis, Hoarsness, Lip Swelling, Mouth Lesions, Mouth Pain, Odynophagia, Sore Throat, Throat Swelling, Tongue Swelling, Facial Pain, Neck Pain, Neck Mass, Other - Cardiovascular Cardiovascular: absent: As Per HPI, Acrocyanosis, Chest Pain, Chest Pain at Rest , Chest Pain with Activity, Claudication, Diaphoresis, Dyspnea, Dyspnea on Exertion, Edema, Irregular Heart Rhythm, Pain Radiating to Arm/Neck/Jaw, Leg Edema, Leg Ulcers, Lightheadedness, Orthopnea, Palpitations, Paroxysmal Nocturnal Dyspnea, Pedal Edema, Radiating Pain, Rapid Heart Rate, Slow Heart Rate, Syncope, Other - Respiratory Respiratory: absent: As Per HPI, Cough, Dyspnea, Hemoptysis, Dyspnea on Exertion , Wheezing, Snoring, Stridor, Pain on Inspiration, Chest Congestion, Excessive Mucous Production, Change in Mucous Color, Pain with Coughing, Other - Gastrointestinal Gastrointestinal: absent: As Per HPI, Abdominal Pain, Belching, Bloating, Change in Bowel Habits, Change in Stool Character, Coffee Ground Emesis, Constipation, Cramping, Diarrhea, Dyspepsia, Dysphagia, Early Satiety, Excessive Flatus, Fecal Incontinence, Heartburn, Hematemesis, Hematochezia, Loose Stools, Melena, Nausea, Odynophagia, Temesmus, Vomiting, Other - Genitourinary Genitourinary: Urinary Incontinence - Musculoskeletal Additional comments: B/L AKA - Integumentary Integumentary: absent: As Per HPI, Acne, Alopecia, Bleeding Lesions, Change in Hair, Change in Nails, Change in Pigmentation, Changing Lesions, Dry Skin, Erythema, Furuncle, Hirsutism, Lesions, New Lesions, Non-Healing Lesions, Photosensitivity, Pruritus, Rash, Skin Pain, Skin Ulcer, Sores, Striae, Swelling , Unusual Bruising, Wounds, Jaundice, Other - Neurological Neurological: Confusion - Psychiatric Psychiatric: Confusion - Endocrine Endocrine: absent: As Per HPI, Change in Body Appearance, Change in Libido, Cold Intolorance, Deepening of Voice, Excessive Sweating, Fatigue, Flushing, Heat Intolorance, Increase in Ring/Shoe/Hat Size, Palpitations, Polydipsia, Polyphagia, Polyuria, Other - Hematologic/Lymphatic Additional comments: Hb 6.3 Past Patient History - Infectious Disease Hx of Infectious Diseases: None - Past Medical History & Family History Past Medical History?: Yes - Past Social History Smoking Status: Heavy Smoker > 10 Cigarettes Daily - CARDIAC Hx Cardiac Disorders: Yes - PULMONARY Hx Chronic Obstructive Pulmonary Disease (COPD): Yes - NEUROLOGICAL Hx Dementia: Yes - HEENT Hx HEENT Problems: No - RENAL Hx Chronic Kidney Disease: No - ENDOCRINE/METABOLIC Hx Endocrine Disorders: No - HEMATOLOGICAL/ONCOLOGICAL Hx Blood Disorders: No - INTEGUMENTARY Hx Dermatological Problems: Yes Hx Last: Yes - MUSCULOSKELETAL/RHEUMATOLOGICAL Hx Musculoskeletal Disorders: Yes Hx Falls: No Other/Comment: B/L BKA - GASTROINTESTINAL Hx Gastrointestinal Disorders: Yes Hx Constipation: Yes Hx Ulcer: Yes (gastric) - GENITOURINARY/GYNECOLOGICAL Hx Genitourinary Disorders: Yes - PSYCHIATRIC Hx Substance Use: No - SURGICAL HISTORY Hx Surgeries: Yes Hx Amputation: Yes (b/l BKA) - ANESTHESIA Hx Anesthesia: Yes Hx Anesthesia Reactions: No Hx Malignant Hyperthermia: No Meds Allergies/Adverse Reactions: Allergies Allergy/AdvReac Type Severity Reaction Status Date / Time No Known Allergies Allergy Verified 11/27/17 17:56 - Medications Medications: Current Medications Albuterol/Ipratropium (Duoneb 3 Mg/0.5 Mg (3 Ml) Ud) 3 ml INH RQ6 [facility] Docusate Sodium (Colace) 100 mg PO TID [facility] Last Admin: 11/28/17 09:19 Dose: 100 mg Piperacillin Sod/Tazobactam (Sod 3.375 gm/ Sodium Chloride) 100 mls @ 200 mls/ hr IVPB Q6H [facility] PRN Reason: Protocol Last Admin: 11/28/17 11:12 Dose: 200 mls/hr Vancomycin/Sodium Chloride (Vancomycin 1 Gm/Ns 200 Ml) 1 gm in 200 mls @ 133 mls/hr IVPB Q12H [facility] PRN Reason: Protocol Stop: 12/03/17 10:01 Last Admin: 11/28/17 09:18 Dose: 133 mls/hr Morphine Sulfate (Morphine Extended Release Tab) 15 mg PO Q12 [facility] Last Admin: 11/28/17 11:20 Dose: 15 mg Tamsulosin HCl (Flomax) 0.4 mg PO DAILY [facility] Last Admin: 11/28/17 09:19 Dose: 0.4 mg Physical Exam - Constitutional Appears: Chronically Ill - Head Exam Head Exam: ATRAUMATIC, NORMAL INSPECTION, NORMOCEPHALIC - Eye Exam Eye Exam: EOMI, Normal appearance, PERRL Pupil Exam: NORMAL ACCOMODATION, PERRL - ENT Exam ENT Exam: Mucous Membranes Moist, Normal Exam - Neck Exam Neck exam: Positive for: Normal Inspection - Respiratory Exam Respiratory Exam: Clear to Auscultation Bilateral, NORMAL BREATHING PATTERN - Cardiovascular Exam Cardiovascular Exam: REGULAR RHYTHM - GI/Abdominal Exam GI & Abdominal Exam: Normal Bowel Sounds, Soft - Rectal Exam Rectal Exam: Deferred - Exam Exam: NORMAL INSPECTION - Extremities Exam Additional comments: B/L AKA - Back Exam Back exam: NORMAL INSPECTION - Neurological Exam Neurological exam: Alert, Altered - Psychiatric Exam Psychiatric exam: Flat Affect - Skin Skin Exam: Pallor Results - Vital Signs Recent Vital Signs: Last Vital Signs Temp 102.3 F H 11/28/17 08:26 Pulse 107 H 11/28/17 08:19 Resp 22 11/28/17 08:19 BP 108/40 L 11/28/17 08:19 Pulse Ox 95 11/28/17 08:19 - Labs Result Diagrams: 11/28/17 11:15 11/28/17 11:15 Labs: Laboratory Results - last 24 hr 11/27/17 11/27/17 11/27/17 19:30 19:30 19:30 WBC 18.5 H D RBC 2.09 L Hgb 6.3 L* D Hct 19.7 L MCV 94.2 H D MCH 30.1 MCHC 31.9 L RDW 17.8 H Plt Count 642 H D MPV 8.1 Neut % (Auto) 85.7 H Lymph % (Auto) 6.5 L Patrick % (Auto) 5.7 Eos % (Auto) 1.7 Baso % (Auto) 0.4 Neut # (Auto) 15.9 H Lymph # (Auto) 1.2 Patrick # (Auto) 1.1 H Eos # (Auto) 0.3 Baso # (Auto) 0.1 Neutrophils % (Manual) 87 H Band Neutrophils % 1 Lymphocytes % (Manual) 3 L Monocytes % (Manual) 6 Eosinophils % (Manual) 3 Platelet Estimate Increased H Polychromasia Slight Hypochromasia (manual) Slight Anisocytosis (manual) Slight PT 13.0 H INR 1.2 APTT 31 pO2 VBG pH VBG pCO2 VBG HCO3 VBG Total CO2 VBG O2 Sat (Calc) VBG Base Excess VBG Potassium Glucose Lactate Sodium 140 Potassium 4.2 Chloride 103 Carbon Dioxide 23 Anion Gap 18 BUN 22 H Creatinine 0.7 L Est GFR ( Amer) > 60 Est GFR (Non-Af Amer) > 60 POC Glucose (mg/dL) Random Glucose 151 H Calcium 8.4 L Total Bilirubin 0.8 AST 39 ALT 44 Alkaline Phosphatase 163 H D Total Protein 6.9 Albumin 3.0 L Globulin 3.8 Albumin/Globulin Ratio 0.8 L Venous Blood Potassium Urine Color Urine Clarity Urine pH Ur Specific [place] Urine Protein Urine Glucose (UA) Urine Ketones Urine Blood Urine Nitrate Urine Bilirubin Urine Urobilinogen Ur Leukocyte Esterase Urine WBC (Auto) Urine RBC (Auto) Ur Squamous Epith Cells Urine Bacteria Blood Type Antibody Screen Antibody Identification Antibody ID (Elution) ARIANNE, Poly Interpret 11/27/17 11/27/17 11/27/17 19:35 20:24 20:37 WBC RBC Hgb Hct MCV MCH MCHC RDW Plt Count MPV Neut % (Auto) Lymph % (Auto) Patrick % (Auto) Eos % (Auto) Baso % (Auto) Neut # (Auto) Lymph # (Auto) Patrick # (Auto) Eos # (Auto) Baso # (Auto) Neutrophils % (Manual) Band Neutrophils % Lymphocytes % (Manual) Monocytes % (Manual) Eosinophils % (Manual) Platelet Estimate Polychromasia Hypochromasia (manual) Anisocytosis (manual) PT INR APTT pO2 25 L VBG pH 7.40 VBG pCO2 43 VBG HCO3 24.7 VBG Total CO2 27.9 VBG O2 Sat (Calc) 42.1 VBG Base Excess 1.5 VBG Potassium 4.0 Glucose 165 H Lactate 2.0 Sodium 141.0 Potassium Chloride 109.0 H Carbon Dioxide Anion Gap BUN Creatinine Est GFR ( Amer) Est GFR (Non-Af Amer) POC Glucose (mg/dL) Random Glucose Calcium Total Bilirubin AST ALT Alkaline Phosphatase Total Protein Albumin Globulin Albumin/Globulin Ratio Venous Blood Potassium 4.0 Urine Color Yellow Urine Clarity Hazy Urine pH 5.0 Ur Specific [place] 1.027 Urine Protein 1+ H Urine Glucose (UA) Normal Urine Ketones Trace Urine Blood Negative Urine Nitrate Negative Urine Bilirubin Negative Urine Urobilinogen 4.0 Ur Leukocyte Esterase Trace Urine WBC (Auto) 10 H Urine RBC (Auto) 1 Ur Squamous Epith Cells 2 Urine Bacteria Rare Blood Type O POSITIVE Antibody Screen Positive Antibody Identification Anti Jka Antibody ID (Elution) WARM AUTO ANTIBODY ARIANNE, Poly Interpret Positive H 11/27/17 11/28/17 11/28/17 22:30 11:15 11:15 WBC 18.8 H RBC 2.34 L Hgb 7.2 L Hct 21.3 L MCV 90.9 D MCH 30.7 MCHC 33.7 RDW 17.2 H Plt Count 577 H MPV 8.5 Neut % (Auto) 85.6 H Lymph % (Auto) 7.6 L Patrick % (Auto) 6.2 Eos % (Auto) 0.2 Baso % (Auto) 0.4 Neut # (Auto) 16.1 H Lymph # (Auto) 1.4 Patrick # (Auto) 1.2 H Eos # (Auto) 0.0 Baso # (Auto) 0.1 Neutrophils % (Manual) 78 H Band Neutrophils % 6 H Lymphocytes % (Manual) 8 L Monocytes % (Manual) 8 Eosinophils % (Manual) Platelet Estimate Increased H Polychromasia Hypochromasia (manual) Slight Anisocytosis (manual) Slight PT INR APTT pO2 20 L VBG pH 7.42 VBG pCO2 43 VBG HCO3 25.4 VBG Total CO2 29.2 H VBG O2 Sat (Calc) 35.4 L VBG Base Excess 2.9 H VBG Potassium 4.2 Glucose 143 H Lactate 1.1 Sodium 142.0 143 Potassium 3.6 Chloride 112.0 H 108 H Carbon Dioxide 23 Anion Gap 16 BUN 16 Creatinine 0.8 Est GFR ( Amer) > 60 Est GFR (Non-Af Amer) > 60 POC Glucose (mg/dL) Random Glucose 139 H Calcium 8.5 L Total Bilirubin 0.9 AST 34 ALT 38 Alkaline Phosphatase 152 H Total Protein 6.9 Albumin 3.0 L Globulin 4.0 H Albumin/Globulin Ratio 0.7 L Venous Blood Potassium 4.2 Urine Color Urine Clarity Urine pH Ur Specific [place] Urine Protein Urine Glucose (UA) Urine Ketones Urine Blood Urine Nitrate Urine Bilirubin Urine Urobilinogen Ur Leukocyte Esterase Urine WBC (Auto) Urine RBC (Auto) Ur Squamous Epith Cells Urine Bacteria Blood Type Antibody Screen Antibody Identification Antibody ID (Elution) ARIANNE, Poly Interpret 11/28/17 12:29 WBC RBC Hgb Hct MCV MCH MCHC RDW Plt Count MPV Neut % (Auto) Lymph % (Auto) Patrick % (Auto) Eos % (Auto) Baso % (Auto) Neut # (Auto) Lymph # (Auto) Patrick # (Auto) Eos # (Auto) Baso # (Auto) Neutrophils % (Manual) Band Neutrophils % Lymphocytes % (Manual) Monocytes % (Manual) Eosinophils % (Manual) Platelet Estimate Polychromasia Hypochromasia (manual) Anisocytosis (manual) PT INR APTT pO2 VBG pH VBG pCO2 VBG HCO3 VBG Total CO2 VBG O2 Sat (Calc) VBG Base Excess VBG Potassium Glucose Lactate Sodium Potassium Chloride Carbon Dioxide Anion Gap BUN Creatinine Est GFR ( Amer) Est GFR (Non-Af Amer) POC Glucose (mg/dL) 120 H Random Glucose Calcium Total Bilirubin AST ALT Alkaline Phosphatase Total Protein Albumin Globulin Albumin/Globulin Ratio Venous Blood Potassium Urine Color Urine Clarity Urine pH Ur Specific [place] Urine Protein Urine Glucose (UA) Urine Ketones Urine Blood Urine Nitrate Urine Bilirubin Urine Urobilinogen Ur Leukocyte Esterase Urine WBC (Auto) Urine RBC (Auto) Ur Squamous Epith Cells Urine Bacteria Blood Type Antibody Screen Antibody Identification Antibody ID (Elution) ARIANNE, Poly Interpret Assessment & Plan - Assessment and Plan (Free Text) Assessment: Palliative consult DNR/DNI, no supporting documents on chart, PPS 30% I reviewed medical records, all diagnostic studies, examined patent in thebed, transation in Ch[place] provided for the interview Patient is alert, attempts to fallow simple commends, knew where he was but could not remember his . When asked if had pain, patient denied, but when left AKA was inspected patient reacted in severe pain. Physical exam reveals chronically ill, disabled man, pale, Hb 7.2. Breath sounds normal, denies SOB. Abdomen soft, active bowel sounds. [place] catheter in place, patient incontinent of urine. Right AKA healed. Left AKA denita open, wound irrigated with Iodine. No drainage at this time. Left stump very painful to minimal maneuver. Pain is managed by MS Caleb BUCKLEY. This morning at 8:30 am recorded Temp was 102.3. On exam patient was afebrile. I spoke to patient's nephew Fabian who said was coming over in about 30 min. So far nephew has not come. I asked Anirudh WELLS to let me know if he comes. Impression * Chronically ill man with acute symptoms of left AKA infection * Pain to surgical side * Fever * Limited mobility * Language barrier, unable to always advocate for himself * Confusion * At risk for pressure sore due to pressure on his scrotum and sacrum Suggestions * Would consider Percocet PO for severe breakthrough pain * Tylenol for fever * Monitor H&H * Provide Ch[place] speaking person to assist with care * Reorient X 3 on each interaction * Air matress and Turning and positioning Q 2 hr to avoid pressure sore I will wait to hear back from nephscout Peralta for further gals of care discussion.
[2017-11-28] MEDS ORDERED: Oxycodone/Acetaminophen 5/325 mg Tab PO STA ×2 (14:54→15:14)
--- NOTE | 2017-11-28 18:54 | PCM.SEPTIC ---
Sepsis Progress Note - Reassessment Type Date of Evaluation: 11/27/17 Time of Evaluation: 22:30 Reassessment Type: Non-invasive reassessment - Non Invasive Reassessment Were the most recent vital sign reviewed: Yes Vital Sign (Latest): Temp Pulse Resp BP Pulse Ox 98.9 F 79 18 93/52 L 96 11/28/17 18:42 11/28/17 18:42 11/28/17 18:42 11/28/17 18:42 11/28/17 15:00 Cardiovascular: Yes: Regular Rate, Rhythm Respiratory: Yes: Normal Breath Sounds Capillary Refill: Normal (Less than 2 sec) Skin: Ecchymosis (in LLE with pus coming out of leg), Other - Invasive Reassessment (complete 2 of 4) Was a Central Venous Pressure Measurement obtained within 6 Hours after the presentation of septic shock: No Was a central venous oxygen measurement obtained within 6 hours after the presentation of septic shock: No Was a bedside cardiovascular ultrasound performed within 6 hours after the presentation of septic shock: No Was a passive leg raise performed or was a fluid challenge performed within 6 hrs of the initial fluid bolus: No Passive Leg Raise Result: Not Applicable Fluid Challenge performed: No
[2017-11-29] MEDS: Albuterol-Ipratrop 3 mg / 0.5 (3 ml) UD INH SCH ×4 (01:24→20:04)
[2017-11-29] MEDS: Piperacillin/Tazobact 3.375 GM in Sodium Chloride 100 ML IVPB SCH ×4 (04:29→22:43)
[2017-11-29] MEDS ORDERED: oxyCODONE 5 mg Immediate Release Tab PO STA (06:01)
[2017-11-29] MEDS ORDERED: POLYETHYLENE GLYCOL 3350 17 GM/Dose PACKET PO PRN (07:24)
[2017-11-29] MEDS ORDERED: Oxycodone/Acetaminophen 5/325 mg Tab PO PRN (07:27)
--- NOTE | 2017-11-29 07:36 | CP.PCM.PN ---
Subjective - Date & Time of Evaluation Date of Evaluation: 11/29/17 Time of Evaluation: 07:35 - Subjective Subjective: Patient seen and examined at bedside. Still complaining of pain. Does not know he is in the hospital. No other complaints at this time Objective - Vital Signs/Intake and Output Vital Signs (last 24 hours): Temp Pulse Resp BP Pulse Ox 99 F 90 20 100/58 L 95 11/29/17 04:46 11/29/17 04:46 11/29/17 04:46 11/29/17 04:46 11/29/17 04:46 Intake and Output: 11/29/17 11/29/17 06:59 18:59 Intake Total 300 Output Total 300 Balance 0 - Medications Medications: Current Medications Albuterol/Ipratropium (Duoneb 3 Mg/0.5 Mg (3 Ml) Ud) 3 ml INH RQ6 [facility] Last Admin: 11/29/17 01:24 Dose: 3 ml Docusate Sodium (Colace) 100 mg PO TID [facility] Last Admin: 11/28/17 15:16 Dose: 100 mg Piperacillin Sod/Tazobactam (Sod 3.375 gm/ Sodium Chloride) 100 mls @ 200 mls/ hr IVPB Q6H [facility] PRN Reason: Protocol Last Admin: 11/29/17 04:29 Dose: 200 mls/hr Vancomycin/Sodium Chloride (Vancomycin 1 Gm/Ns 200 Ml) 1 gm in 200 mls @ 133 mls/hr IVPB Q12H [facility] PRN Reason: Protocol Stop: 12/03/17 10:01 Last Admin: 11/28/17 21:08 Dose: 133 mls/hr Morphine Sulfate (Morphine Extended Release Tab) 15 mg PO Q12 [facility] Last Admin: 11/28/17 23:30 Dose: 15 mg Oxycodone/Acetaminophen (Percocet 5/325 Mg Tab) 1 tab PO Q6H PRN PRN Reason: Pain, severe (8-10) Stop: 12/02/17 07:28 Polyethylene Glycol (Miralax) 17 gm PO DAILY PRN PRN Reason: If no BM in 3 days Tamsulosin HCl (Flomax) 0.4 mg PO DAILY [facility] Last Admin: 11/28/17 09:19 Dose: 0.4 mg - Labs Labs: 11/28/17 11:15 11/28/17 11:15 PT 13.0 SECONDS (9.7-12.2) H 11/27/17 19:30 INR 1.2 11/27/17 19:30 APTT 31 SECONDS (21-34) 11/27/17 19:30 - Additional Findings Additional findings: - Constitutional Appears: Non-toxic - Head Exam Head Exam: ATRAUMATIC, NORMAL INSPECTION, NORMOCEPHALIC - Eye Exam Eye Exam: EOMI, Normal appearance, PERRL Pupil Exam: NORMAL ACCOMODATION, PERRL - ENT Exam ENT Exam: Mucous Membranes Moist, Normal Exam - Neck Exam Neck Exam: Full ROM, Normal Inspection. absent: Lymphadenopathy - Respiratory Exam Respiratory Exam: Clear to Ausculation Bilateral, NORMAL BREATHING PATTERN - Cardiovascular Exam Cardiovascular Exam: REGULAR RHYTHM, +S1, +S2. absent: Murmur - GI/Abdominal Exam GI & Abdominal Exam: Soft, Normal Bowel Sounds. absent: Distended, Tenderness - Extremities Exam Additional comments: L. amputation with necrotic tissue surrounding staple line, no crepitus - Back Exam Back Exam: NORMAL INSPECTION - Neurological Exam Neurological Exam: Alert, Awake, CN II-XII Intact, Normal Gait - Psychiatric Exam Psychiatric exam: Normal Affect, Normal Mood - Skin Skin Exam: Dry, Intact, Normal Color, Warm Assessment and Plan - Assessment and Plan (Free Text) Assessment: (1) S/P AKA (above knee amputation) Assessment & Plan: Surgery ([place]) wound culture - S. aureus * F/U Sensitivities Vanco 1g Q12H Zosyn 3.375g Q6H Morphine ER 15 PO Q12 [facility] Perc 1 tab q6 for breakthru Miralax/Colace for constipation Status: Acute (2) Anemia Assessment & Plan: transfused 2 units h/h stable Status: Acute (3) Prophylactic measure Assessment & Plan: Hold anticoag due to bleeding SCD CI No GI PPX indicated at this time Ensure Enlive HHD pt/ot Status: Acute
[2017-11-29 08:35] LABS: BASO # 0.1 K/uL (0.0-0.2); BASO % 0.4 % (0.0-2.0); EOS # 0.1 K/uL (0.0-0.7); EOS % 0.5 % (0.0-4.0); HEMOGLOBIN 8.8 g/dL (12.0-18.0); LYMPH # 1.4 K/uL (1.0-4.3); LYMPH % 7.2 % (20.0-40.0); MEAN CORPUSCULAR HEMOGLOBIN 29.9 pg (27.0-31.0); MEAN CORPUSCULAR HGB CONC 33.7 g/dL (33.0-37.0); MEAN PLATELET VOLUME 8.2 fL (7.2-11.7); MONO # 1.1 K/uL (0.0-0.8); MONO % 5.7 % (0.0-10.0); NEUT # 16.5 K/uL (1.8-7.0); NEUT % 86.2 % (50.0-75.0); PLATELET COUNT 606 K/uL (130-400); RBC 2.94 Mil/uL (4.40-5.90); WHITE BLOOD COUNT 19.1 K/uL (4.8-10.8)
[2017-11-29 08:40] LABS: ALB/GLOB RATIO 0.8 (1.0-2.1); ALT/SGPT 36 U/L (21-72); AST/SGOT 46 U/L (17-59); BLOOD UREA NITROGEN 13 mg/dL (9-20); CALCIUM 8.7 mg/dl (8.6-10.4); GFR AFRICAN-AMERICAN > 60; GFR NON-AFRICAN AMERICAN > 60
[2017-11-29 08:43] LABS: MEAN CELL VOLUME 88.8 fL (80.0-94.0)
[2017-11-29 09:57] LABS: ANISOCYTOSIS SLIGHT; BANDS 5 % (0-2); EOSINOPHIL 2 % (0-4); LYMPHOCYTE 8 % (20-40); MONOCYTE 6 % (0-10); NEUTROPHIL 79 % (50-75); PLATELET ESTIMATE INCREASED (NORMAL); TOTAL CELLS COUNTED 100
[2017-11-29] MEDS: Morphine 15 mg SR Tab PO SCH ×2 (10:26→21:03)
[2017-11-29] MEDS: Vancomycin 1 gm/NS 200 ml 1 GM/200 ML BAG IVPB SCH ×2 (10:26→21:02)
[2017-11-29] MEDS ORDERED: Etomidate 20 mg/10ml Inj IV ONE (14:28)
[2017-11-29] MEDS ORDERED: Propofol 10 mg/ml Inj (20 ML) ONE (14:29)
--- NOTE | 2017-11-29 16:02 | PCM.SURG1 ---
Surgeon's Initial Post Op Note - Surgeon's Notes Surgeon: Dr. Padilla Cap Parts Cutter: Tara Bustos, PGY3; Elsie Suero, PGY2 Pre-Operative Diagnosis: infected left AKA stump Operative Findings: purulent drainage from prior bypass graft in left lower limb , healthy, bleeding muscle tissue Post-Operative Diagnosis: Infected bypass graft left lower extremity Operation Performed: revision of left AKA Specimen/Specimens Removed: left AKA stump Estimated Blood Loss: EBL {In ML}: 300 Date of Surgery/Procedure: 11/29/17 Time of Surgery/Procedure: 14:00
[2017-11-29] MEDS: HYDROmorphone 0.5 mg/0.5 ml ISec IVP PRN ×4 (16:10→18:46)
[2017-11-29 20:23] LABS: BASO % 0.2 % (0.0-2.0); EOS # 0.2 K/uL (0.0-0.7); EOS % 0.8 % (0.0-4.0); HEMOGLOBIN 8.6 g/dL (12.0-18.0); LYMPH # 2.4 K/uL (1.0-4.3); MEAN CORPUSCULAR HEMOGLOBIN 29.7 pg (27.0-31.0); MEAN PLATELET VOLUME 8.3 fL (7.2-11.7); MONO # 1.1 K/uL (0.0-0.8); MONO % 4.7 % (0.0-10.0); NEUT # 20.4 K/uL (1.8-7.0); NEUT % 84.3 % (50.0-75.0); NRBC % 0.1 % (0.0-2.0); RBC 2.91 Mil/uL (4.40-5.90); RED CELL DISTRIBUTION WIDTH 17.5 % (11.5-14.5); WHITE BLOOD COUNT 24.2 K/uL (4.8-10.8)
[2017-11-29 21:08] LABS: HEPATITIS B SURFACE AG Negative (NEGATIVE)
[2017-11-29 21:13] LABS: HEPATITIS A IGM NEGATIVE (NEGATIVE); HEPATITIS B CORE AB NEGATIVE (NEGATIVE)
[2017-11-29 21:27] LABS: HEPATITIS C ANTIBODY NEGATIVE (NEGATIVE)
--- NOTE | 2017-11-30 01:14 | OP ---
PROCEDURE DATE: 11/29/2017. PREOPERATIVE DIAGNOSIS: Gangrenous thumb. POSTOPERATIVE DIAGNOSIS: Gangrenous thumb plus infected graft, left leg. PROCEDURES: 1. Revision of above knee amputation. 2. Removal of infected graft from left leg. SURGEON: Yogesh Padilla Jr., MD TERRA[employer]ER HELPER: Dr. Bustos and Dr. Suero. INDICATION: The patient is an elderly man who previously underwent a left above knee amputation, he also had a contralateral amputation since has nonhealing of the ulcer and drainage from the wound. DESCRIPTION OF PROCEDURE: Leg was amputated approximately 4 inches higher than before. The bone was cut at a higher level, during we were doing this there was pus tracking along of the old [place] graft, which was removed. There was no bleeding from the tract when the graft was removed. After we had done this we then closed the wounds with Monocryl and Vicryl sutures. We closed the skin and skin clips. Blood loss during the procedure was about 250 mL. Operation carried out is revision of left above knee amputation, amputation at a higher level to the bone and removal of infected graft from the left leg. Yogesh Padilla Jr., MD
[2017-11-30] MEDS: Albuterol-Ipratrop 3 mg / 0.5 (3 ml) UD INH SCH ×4 (01:19→20:01)
[2017-11-30] MEDS: HYDROmorphone 0.5 mg/0.5 ml ISec IVP PRN ×2 (01:22→17:57)
[2017-11-30] MEDS: Piperacillin/Tazobact 3.375 GM in Sodium Chloride 100 ML IVPB SCH ×4 (04:38→22:08)
--- NOTE | 2017-11-30 06:44 | CP.PCM.PN ---
Subjective - Date & Time of Evaluation Date of Evaluation: 11/30/17 Time of Evaluation: 06:44 - Subjective Subjective: General surgery - DR. Padilla pt S&E. KARLOS. Pt denies any pain this morning. [place] was adjusted as it seemed to have fallen off overnight. Surgical site C/D/I. Objective - Vital Signs/Intake and Output Vital Signs (last 24 hours): Temp Pulse Resp BP Pulse Ox 98.4 F 88 20 92/54 L 94 L 11/29/17 23:20 11/30/17 01:39 11/29/17 23:20 11/29/17 23:20 11/29/17 23:20 Intake and Output: 11/29/17 11/30/17 18:59 06:59 Intake Total 700 Output Total 200 Balance 700 -200 - Medications Medications: Current Medications Albuterol/Ipratropium (Duoneb 3 Mg/0.5 Mg (3 Ml) Ud) 3 ml INH RQ6 [facility] Last Admin: 11/30/17 01:19 Dose: 3 ml Docusate Sodium (Colace) 100 mg PO TID [facility] Last Admin: 11/29/17 17:22 Dose: 100 mg Hydromorphone HCl (Dilaudid) 0.5 mg IVP Q6H PRN PRN Reason: Pain, severe (8-10) Last Admin: 11/30/17 01:22 Dose: 0.5 mg Piperacillin Sod/Tazobactam (Sod 3.375 gm/ Sodium Chloride) 100 mls @ 200 mls/ hr IVPB Q6H [facility] PRN Reason: Protocol Last Admin: 11/30/17 04:38 Dose: 200 mls/hr Vancomycin/Sodium Chloride (Vancomycin 1 Gm/Ns 200 Ml) 1 gm in 200 mls @ 133 mls/hr IVPB Q12H [facility] PRN Reason: Protocol Stop: 12/03/17 10:01 Last Admin: 11/29/17 21:02 Dose: 133 mls/hr Morphine Sulfate (Morphine Extended Release Tab) 15 mg PO Q12 [facility] Last Admin: 11/29/17 21:03 Dose: 15 mg Oxycodone/Acetaminophen (Percocet 5/325 Mg Tab) 1 tab PO Q6H PRN PRN Reason: Pain, severe (8-10) Stop: 12/02/17 07:28 Last Admin: 11/29/17 12:54 Dose: 1 tab Polyethylene Glycol (Miralax) 17 gm PO DAILY PRN PRN Reason: If no BM in 3 days Tamsulosin HCl (Flomax) 0.4 mg PO DAILY [facility] Last Admin: 11/29/17 10:26 Dose: 0.4 mg - Labs Labs: 11/29/17 20:00 11/29/17 08:09 PT 13.0 SECONDS (9.7-12.2) H 11/27/17 19:30 INR 1.2 11/27/17 19:30 APTT 31 SECONDS (21-34) 11/27/17 19:30 - Constitutional Appears: No Acute Distress - Head Exam Head Exam: ATRAUMATIC, NORMAL INSPECTION, NORMOCEPHALIC - Respiratory Exam Respiratory Exam: NORMAL BREATHING PATTERN. absent: Respiratory Distress - Extremities Exam Additional comments: S/P B/L AKA, Left AKA stump dressing C/D/I - Neurological Exam Neurological Exam: Alert, Awake - Skin Skin Exam: Dry, Intact Assessment and Plan - Assessment and Plan (Free Text) Assessment: 72 yo M s/p Revision of Left AKA with removal of infected graft -F/U Cultures -Pain control prn -IV Abx -Physical therapy -Continue care as per primary team -No further surgical intervention at this time LONNY Padilla
--- NOTE | 2017-11-30 08:52 | CP.PCM.PN ---
<Ngozi Hughes - Last Filed: 11/30/17 08:49> Subjective - Date & Time of Evaluation Date of Evaluation: 11/30/17 Time of Evaluation: 08:49 - Subjective Subjective: PGy [address] Reid Pt seen and examined at bedside. Pt s/p revision of left AKA POD #1. Per nurse , pt was febrile overnight. Patient is complaining of severe pain this morning in the left LE. Denie shaving any CP, abd pain, N/V, SOB. Objective - Vital Signs/Intake and Output Vital Signs (last 24 hours): Temp Pulse Resp BP Pulse Ox 98.2 F 93 H 20 127/71 98 11/30/17 07:00 11/30/17 07:54 11/30/17 07:00 11/30/17 07:00 11/30/17 07:00 Intake and Output: 11/30/17 11/30/17 06:59 18:59 Output Total 200 Balance -200 - Medications Medications: Current Medications Albuterol/Ipratropium (Duoneb 3 Mg/0.5 Mg (3 Ml) Ud) 3 ml INH RQ6 [facility] Last Admin: 11/30/17 07:42 Dose: 3 ml Docusate Sodium (Colace) 100 mg PO TID [facility] Last Admin: 11/29/17 17:22 Dose: 100 mg Hydromorphone HCl (Dilaudid) 0.5 mg IVP Q6H PRN PRN Reason: Pain, severe (8-10) Last Admin: 11/30/17 01:22 Dose: 0.5 mg Piperacillin Sod/Tazobactam (Sod 3.375 gm/ Sodium Chloride) 100 mls @ 200 mls/ hr IVPB Q6H [facility] PRN Reason: Protocol Last Admin: 11/30/17 04:38 Dose: 200 mls/hr Vancomycin/Sodium Chloride (Vancomycin 1 Gm/Ns 200 Ml) 1 gm in 200 mls @ 133 mls/hr IVPB Q12H [facility] PRN Reason: Protocol Stop: 12/03/17 10:01 Last Admin: 11/29/17 21:02 Dose: 133 mls/hr Morphine Sulfate (Morphine Extended Release Tab) 15 mg PO Q12 [facility] Last Admin: 11/29/17 21:03 Dose: 15 mg Oxycodone/Acetaminophen (Percocet 5/325 Mg Tab) 1 tab PO Q6H PRN PRN Reason: Pain, severe (8-10) Stop: 12/02/17 07:28 Last Admin: 11/29/17 12:54 Dose: 1 tab Polyethylene Glycol (Miralax) 17 gm PO DAILY PRN PRN Reason: If no BM in 3 days Tamsulosin HCl (Flomax) 0.4 mg PO DAILY [facility] Last Admin: 11/29/17 10:26 Dose: 0.4 mg - Labs Labs: 11/29/17 20:00 11/29/17 08:09 PT 13.0 SECONDS (9.7-12.2) H 11/27/17 19:30 INR 1.2 11/27/17 19:30 APTT 31 SECONDS (21-34) 11/27/17 19:30 - Constitutional Appears: Non-toxic - Head Exam Head Exam: ATRAUMATIC, NORMOCEPHALIC - ENT Exam ENT Exam: Mucous Membranes Moist - Respiratory Exam Respiratory Exam: Clear to Ausculation Bilateral. absent: Rales, Rhonchi, Wheezes - Cardiovascular Exam Cardiovascular Exam: REGULAR RHYTHM, +S1, +S2. absent: Gallop, Rubs, Murmur - GI/Abdominal Exam GI & Abdominal Exam: Soft, Normal Bowel Sounds. absent: Distended, Firm, Guarding, Rigid, Tenderness, Organomegaly - Extremities Exam Additional comments: left LE stitches noted. No erythema or purulent drainage - Neurological Exam Neurological Exam: Alert, Awake. absent: Oriented x3 - Psychiatric Exam Psychiatric exam: Normal Affect, Normal Mood - Skin Skin Exam: Dry, Intact, Normal Color, Warm Assessment and Plan - Assessment and Plan (Free Text) Assessment: S/P AKA (above knee amputation) S/P left revision of AKA with graft removal POD #1 Patient febrile overnight. WBC count elevated this morning at 24 likely 2/2 recent procedure. Will repeat blood cultures, urinalysis and urine culture. Will check CXR. Incentive spirometer ordered wound culture 11/28/17- S. aureus * F/U Sensitivities Vanco 1g Q12H. Will check Vanco trough today Zosyn 3.375g Q6H Morphine ER 15 PO Q12 [facility] Perc 1 tab q6 for breakthru Dilaudid 0.5 mg IVP Q6 Miralax/Colace for constipation Anemia Assessment & Plan: transfused 2 units 11/28/17 h/h stable Prophylactic measure Hold anticoag due to bleeding SCD CI No GI PPX indicated at this time Ensure Enlive HHD pt/ot Case discussed with attending, Dr. Reid <Wilfrid Reid H - Last Filed: 11/30/17 09:05> Objective - Vital Signs/Intake and Output Vital Signs (last 24 hours): Temp Pulse Resp BP Pulse Ox 98.2 F 93 H 20 127/71 98 11/30/17 07:00 11/30/17 07:54 11/30/17 07:00 11/30/17 07:00 11/30/17 07:00 Intake and Output: 11/30/17 11/30/17 06:59 18:59 Output Total 200 Balance -200 - Medications Medications: Current Medications Albuterol/Ipratropium (Duoneb 3 Mg/0.5 Mg (3 Ml) Ud) 3 ml INH RQ6 [facility] Last Admin: 11/30/17 07:42 Dose: 3 ml Docusate Sodium (Colace) 100 mg PO TID [facility] Last Admin: 11/29/17 17:22 Dose: 100 mg Hydromorphone HCl (Dilaudid) 0.5 mg IVP Q6H PRN PRN Reason: Pain, severe (8-10) Last Admin: 11/30/17 01:22 Dose: 0.5 mg Piperacillin Sod/Tazobactam (Sod 3.375 gm/ Sodium Chloride) 100 mls @ 200 mls/ hr IVPB Q6H [facility] PRN Reason: Protocol Last Admin: 11/30/17 04:38 Dose: 200 mls/hr Vancomycin/Sodium Chloride (Vancomycin 1 Gm/Ns 200 Ml) 1 gm in 200 mls @ 133 mls/hr IVPB Q12H [facility] PRN Reason: Protocol Stop: 12/03/17 10:01 Last Admin: 11/29/17 21:02 Dose: 133 mls/hr Morphine Sulfate (Morphine Extended Release Tab) 15 mg PO Q12 [facility] Last Admin: 11/29/17 21:03 Dose: 15 mg Oxycodone/Acetaminophen (Percocet 5/325 Mg Tab) 1 tab PO Q6H PRN PRN Reason: Pain, severe (8-10) Stop: 12/02/17 07:28 Last Admin: 11/29/17 12:54 Dose: 1 tab Polyethylene Glycol (Miralax) 17 gm PO DAILY PRN PRN Reason: If no BM in 3 days Tamsulosin HCl (Flomax) 0.4 mg PO DAILY [facility] Last Admin: 11/29/17 10:26 Dose: 0.4 mg - Labs Labs: 11/30/17 08:36 11/29/17 08:09 PT 13.0 SECONDS (9.7-12.2) H 11/27/17 19:30 INR 1.2 11/27/17 19:30 APTT 31 SECONDS (21-34) 11/27/17 19:30 Attending/Attestation - Attestation I have personally seen and examined this patient.: Yes I have fully participated in the care of the patient.: Yes I have reviewed all pertinent clinical information, including history, physical exam and plan: Yes Notes (Text): Medical attending: Patient was seen and examined by me as well. He is status post removal of infected bypass graft. He was reporting pain at the left lower extremity The site is clean, not bleeding WBC remains elevated. Hgb is 8.6, he had a blood transfusion recently. Remains on IV abx, will recheck the blood cultures, urine cultures, and also a chest XRAY. Will try to encourage incentive spirotemtry - however given his mental status I don't know if he will participate or not but he does follow one step commands. thank you Wilfrid Reid
[2017-11-30 08:56] LABS: BASO # 0.1 K/uL (0.0-0.2); BASO % 0.4 % (0.0-2.0); EOS # 0.1 K/uL (0.0-0.7); EOS % 0.6 % (0.0-4.0); HEMOGLOBIN 7.8 g/dL (12.0-18.0); LYMPH # 1.3 K/uL (1.0-4.3); LYMPH % 8.2 % (20.0-40.0); MEAN CELL VOLUME 89.5 fL (80.0-94.0); MEAN CORPUSCULAR HEMOGLOBIN 30.1 pg (27.0-31.0); MEAN CORPUSCULAR HGB CONC 33.7 g/dL (33.0-37.0); MEAN PLATELET VOLUME 8.3 fL (7.2-11.7); MONO # 0.9 K/uL (0.0-0.8); MONO % 6.1 % (0.0-10.0); NEUT # 13.1 K/uL (1.8-7.0); NEUT % 84.7 % (50.0-75.0); PLATELET COUNT 530 K/uL (130-400); RBC 2.58 Mil/uL (4.40-5.90); RED CELL DISTRIBUTION WIDTH 16.7 % (11.5-14.5); WHITE BLOOD COUNT 15.5 K/uL (4.8-10.8)
[2017-11-30 09:19] LABS: ALB/GLOB RATIO 0.7 (1.0-2.1); ALBUMIN 2.8 g/dL (3.5-5.0); ALT/SGPT 42 U/L (21-72); AST/SGOT 61 U/L (17-59); BLOOD UREA NITROGEN 10 mg/dL (9-20); CALCIUM 8.3 mg/dl (8.6-10.4); GFR AFRICAN-AMERICAN > 60; GFR NON-AFRICAN AMERICAN > 60
[2017-11-30] MEDS: Morphine 15 mg SR Tab PO SCH ×2 (10:09→22:07)
[2017-11-30] MEDS: Vancomycin 1 gm/NS 200 ml 1 GM/200 ML BAG IVPB SCH (10:14)
[2017-11-30 10:27] LABS: ANISOCYTOSIS SLIGHT; LYMPHOCYTE 15 % (20-40); METAMYELOCYTE 1 % (0-0); MONOCYTE 5 % (0-10); NEUTROPHIL 79 % (50-75); PLATELET ESTIMATE INCREASED (NORMAL); TOTAL CELLS COUNTED 100
[2017-11-30 10:28] LABS: OVALOCYTES SLIGHT; POLYCHROMIC SLIGHT
[2017-11-30 12:32] LABS: URINE BILIRUBIN NEGATIVE (NEGATIVE); URINE BLOOD 1+ (NEGATIVE); URINE CLARITY Clear (Clear); URINE COLOR Yellow (YELLOW); URINE GLUCOSE (UA) NORMAL (Normal); URINE LEUKOCYTE ESTERASE NEG Leu/uL (Negative); URINE PROTEIN NEGATIVE (NEGATIVE)
--- NOTE | 2017-11-30 16:34 | RAD ---
HISTORY: rule out infection post op Comparison chest radiograph 11/27/2017 COMPARISON: FINDINGS: LUNGS: Minor left basilar atelectasis felt be present. Previously noted rounded nodular density left lateral mid lung zone is less well seen on this exam as compared to prior study likely due to patient positioning. Rule out parenchymal nodule or mass versus prominent granuloma. Followup CT scan of the chest recommended. . PLEURA: No significant pleural effusion identified, no pneumothorax apparent. CARDIOVASCULAR: Normal. OSSEOUS STRUCTURES: No significant abnormalities. VISUALIZED UPPER ABDOMEN: Normal. OTHER FINDINGS: None. IMPRESSION: Minor left basilar atelectasis felt be present. Previously noted rounded nodular density left lateral mid lung zone is less well seen on this exam as compared to prior study likely due to patient positioning. Rule out parenchymal nodule or mass versus prominent granuloma. Followup CT scan of the chest recommended.
[2017-12-01] MEDS: Albuterol-Ipratrop 3 mg / 0.5 (3 ml) UD INH SCH ×4 (01:37→20:33)
[2017-12-01 07:04] LABS: BASO % 0.2 % (0.0-2.0); EOS # 0.2 K/uL (0.0-0.7); EOS % 1.6 % (0.0-4.0); HEMOGLOBIN 7.3 g/dL (12.0-18.0); LYMPH # 1.3 K/uL (1.0-4.3); MEAN CELL VOLUME 88.6 fL (80.0-94.0); MEAN CORPUSCULAR HEMOGLOBIN 29.8 pg (27.0-31.0); MEAN CORPUSCULAR HGB CONC 33.7 g/dL (33.0-37.0); MEAN PLATELET VOLUME 7.7 fL (7.2-11.7); MONO # 1.1 K/uL (0.0-0.8); MONO % 8.8 % (0.0-10.0); NEUT # 10.3 K/uL (1.8-7.0); NEUT % 79.4 % (50.0-75.0); RBC 2.44 Mil/uL (4.40-5.90); RED CELL DISTRIBUTION WIDTH 16.8 % (11.5-14.5); WHITE BLOOD COUNT 12.9 K/uL (4.8-10.8)
[2017-12-01] MEDS ORDERED: Potassium Chloride 20 mEq ER Tab PO ONE (07:54)
[2017-12-01 07:58] LABS: ALB/GLOB RATIO 0.7 (1.0-2.1); ALBUMIN 2.7 g/dL (3.5-5.0); ALT/SGPT 52 U/L (21-72); AST/SGOT 94 U/L (17-59); BLOOD UREA NITROGEN 8 mg/dL (9-20); CALCIUM 8.1 mg/dl (8.6-10.4); GFR AFRICAN-AMERICAN > 60; GFR NON-AFRICAN AMERICAN > 60
--- NOTE | 2017-12-01 08:33 | CP.PCM.PN ---
<Nneka Chapa - Last Filed: 12/01/17 08:27> Subjective - Date & Time of Evaluation Date of Evaluation: 12/01/17 Time of Evaluation: 08:27 - Subjective Subjective: Patient seen and examined at bedside. Patient resting comfortably in bed sleeping. No acute events overnight per nusing. Patients pain is well controlled. Objective - Vital Signs/Intake and Output Vital Signs (last 24 hours): Temp Pulse Resp BP Pulse Ox 100.2 F H 93 H 18 137/69 98 12/01/17 07:25 12/01/17 07:25 12/01/17 07:25 12/01/17 07:25 12/01/17 07:25 Intake and Output: 12/01/17 12/01/17 06:59 18:59 Output Total 1500 Balance -1500 - Medications Medications: Current Medications Acetaminophen (Tylenol 325mg Tab) 650 mg PO Q6 PRN PRN Reason: Fever >100.4 F Albuterol/Ipratropium (Duoneb 3 Mg/0.5 Mg (3 Ml) Ud) 3 ml INH RQ6 [facility] Last Admin: 12/01/17 07:12 Dose: 3 ml Docusate Sodium (Colace) 100 mg PO TID [facility] Last Admin: 11/30/17 17:47 Dose: 100 mg Hydromorphone HCl (Dilaudid) 0.5 mg IVP Q6H PRN PRN Reason: Pain, severe (8-10) Last Admin: 11/30/17 17:57 Dose: 0.5 mg Vancomycin/Sodium Chloride (Vancomycin 1 Gm/Ns 200 Ml) 1 gm in 200 mls @ 133 mls/hr IVPB Q12H [facility] PRN Reason: Protocol Stop: 12/03/17 10:01 Last Admin: 11/30/17 10:14 Dose: 133 mls/hr Piperacillin Sod/Tazobactam (Sod 3.375 gm/ Sodium Chloride) 100 mls @ 200 mls/ hr IVPB Q6H [facility] PRN Reason: Protocol Morphine Sulfate (Morphine Extended Release Tab) 15 mg PO Q12 [facility] Last Admin: 11/30/17 22:07 Dose: 15 mg Oxycodone/Acetaminophen (Percocet 5/325 Mg Tab) 1 tab PO Q6H PRN PRN Reason: Pain, severe (8-10) Stop: 12/02/17 07:28 Last Admin: 11/29/17 12:54 Dose: 1 tab Polyethylene Glycol (Miralax) 17 gm PO DAILY PRN PRN Reason: If no BM in 3 days Tamsulosin HCl (Flomax) 0.4 mg PO DAILY [facility] Last Admin: 11/30/17 10:09 Dose: 0.4 mg - Labs Labs: 12/01/17 06:53 12/01/17 06:53 PT 13.0 SECONDS (9.7-12.2) H 11/27/17 19:30 INR 1.2 11/27/17 19:30 APTT 31 SECONDS (21-34) 11/27/17 19:30 - Additional Findings Additional findings: - Constitutional Appears: Non-toxic - Head Exam Head Exam: ATRAUMATIC, NORMOCEPHALIC - ENT Exam ENT Exam: Mucous Membranes Moist - Respiratory Exam Respiratory Exam: Clear to Ausculation Bilateral. absent: Rales, Rhonchi, Wheezes - Cardiovascular Exam Cardiovascular Exam: REGULAR RHYTHM, +S1, +S2. absent: Gallop, Rubs, Murmur - GI/Abdominal Exam GI & Abdominal Exam: Soft, Normal Bowel Sounds. absent: Distended, Firm, Guarding, Rigid, Tenderness, Organomegaly - Extremities Exam Additional comments: left LE stitches noted. No erythema or purulent drainage - Neurological Exam Neurological Exam: Alert, Awake. absent: Oriented x3 - Psychiatric Exam Psychiatric exam: Normal Affect, Normal Mood - Skin Skin Exam: Dry, Intact, Normal Color, Warm Assessment and Plan - Assessment and Plan (Free Text) Plan: S/P AKA (above knee amputation) S/P left revision of AKA with graft removal POD #1 Patient febrile overnight. WBC count elevated this morning at 24 likely 2/2 recent procedure. Will repeat blood cultures, urinalysis and urine culture. Will check CXR. Incentive spirometer ordered wound culture 11/28/17- S. aureus * F/U Sensitivities Vanco 1g Q12H. Will check Vanco trough today Zosyn 3.375g Q6H Morphine ER 15 PO Q12 [facility] Perc 1 tab q6 for breakthru Dilaudid 0.5 mg IVP Q6 Miralax/Colace for constipation Anemia Assessment & Plan: transfused 2 units 11/28/17 h/h stable Prophylactic measure Hold anticoag due to bleeding SCD CI No GI PPX indicated at this time Ensure Enlive HHD pt/ot <Wilfrid Reid H - Last Filed: 12/01/17 08:57> Objective - Vital Signs/Intake and Output Vital Signs (last 24 hours): Temp Pulse Resp BP Pulse Ox 100.2 F H 93 H 18 137/69 98 12/01/17 07:25 12/01/17 07:25 12/01/17 07:25 12/01/17 07:25 12/01/17 07:25 Intake and Output: 12/01/17 12/01/17 06:59 18:59 Output Total 1500 Balance -1500 - Medications Medications: Current Medications Acetaminophen (Tylenol 325mg Tab) 650 mg PO Q6 PRN PRN Reason: Fever >100.4 F Albuterol/Ipratropium (Duoneb 3 Mg/0.5 Mg (3 Ml) Ud) 3 ml INH RQ6 [facility] Last Admin: 12/01/17 07:12 Dose: 3 ml Docusate Sodium (Colace) 100 mg PO TID [facility] Last Admin: 11/30/17 17:47 Dose: 100 mg Hydromorphone HCl (Dilaudid) 0.5 mg IVP Q6H PRN PRN Reason: Pain, severe (8-10) Last Admin: 11/30/17 17:57 Dose: 0.5 mg Vancomycin/Sodium Chloride (Vancomycin 1 Gm/Ns 200 Ml) 1 gm in 200 mls @ 133 mls/hr IVPB Q12H [facility] PRN Reason: Protocol Stop: 12/03/17 10:01 Last Admin: 11/30/17 10:14 Dose: 133 mls/hr Piperacillin Sod/Tazobactam (Sod 3.375 gm/ Sodium Chloride) 100 mls @ 200 mls/ hr IVPB Q6H [facility] PRN Reason: Protocol Morphine Sulfate (Morphine Extended Release Tab) 15 mg PO Q12 [facility] Last Admin: 11/30/17 22:07 Dose: 15 mg Oxycodone/Acetaminophen (Percocet 5/325 Mg Tab) 1 tab PO Q6H PRN PRN Reason: Pain, severe (8-10) Stop: 12/02/17 07:28 Last Admin: 11/29/17 12:54 Dose: 1 tab Polyethylene Glycol (Miralax) 17 gm PO DAILY PRN PRN Reason: If no BM in 3 days Tamsulosin HCl (Flomax) 0.4 mg PO DAILY [facility] Last Admin: 11/30/17 10:09 Dose: 0.4 mg - Labs Labs: 12/01/17 06:53 12/01/17 06:53 PT 13.0 SECONDS (9.7-12.2) H 11/27/17 19:30 INR 1.2 11/27/17 19:30 APTT 31 SECONDS (21-34) 11/27/17 19:30 Attending/Attestation - Attestation I have personally seen and examined this patient.: Yes I have fully participated in the care of the patient.: Yes I have reviewed all pertinent clinical information, including history, physical exam and plan: Yes Notes (Text): 12/01/17 08:54 Medical attending: Patient was seen and examined by me as well. As mentioned previously he is awake and alert however not following commands. Sometimes he does not make any sense. He is able to tell me he has pain at the revision of Left AKA that had removal of infected graft Hgb was 7.3, will transfuse one unit of PRBC Also continue with the IV vancomycin and add on Zosyn IV as well. Blood and urine cultures were done yesterday.
[2017-12-01] MEDS ORDERED: Piperacillin/Tazobact 3.375 GM in Sodium Chloride 100 ML IVPB SCH (09:00)
--- NOTE | 2017-12-01 09:29 | CP.PCM.PN ---
Subjective - Date & Time of Evaluation Date of Evaluation: 12/01/17 Time of Evaluation: 07:10 - Subjective Subjective: Patient seen and examined at bedside this AM. No adverse events overnight. patient resting comfortably, only complaining of mild pain. Objective - Vital Signs/Intake and Output Vital Signs (last 24 hours): Temp Pulse Resp BP Pulse Ox 100.2 F H 93 H 18 137/69 98 12/01/17 07:25 12/01/17 07:25 12/01/17 07:25 12/01/17 07:25 12/01/17 07:25 Intake and Output: 12/01/17 12/01/17 06:59 18:59 Output Total 1500 Balance -1500 - Medications Medications: Current Medications Acetaminophen (Tylenol 325mg Tab) 650 mg PO Q6 PRN PRN Reason: Fever >100.4 F Albuterol/Ipratropium (Duoneb 3 Mg/0.5 Mg (3 Ml) Ud) 3 ml INH RQ6 [facility] Last Admin: 12/01/17 07:12 Dose: 3 ml Docusate Sodium (Colace) 100 mg PO TID [facility] Last Admin: 11/30/17 17:47 Dose: 100 mg Hydromorphone HCl (Dilaudid) 0.5 mg IVP Q6H PRN PRN Reason: Pain, severe (8-10) Last Admin: 11/30/17 17:57 Dose: 0.5 mg Vancomycin/Sodium Chloride (Vancomycin 1 Gm/Ns 200 Ml) 1 gm in 200 mls @ 133 mls/hr IVPB Q12H [facility] PRN Reason: Protocol Stop: 12/03/17 10:01 Last Admin: 11/30/17 10:14 Dose: 133 mls/hr Piperacillin Sod/Tazobactam (Sod 3.375 gm/ Sodium Chloride) 100 mls @ 200 mls/ hr IVPB Q6H [facility] PRN Reason: Protocol Morphine Sulfate (Morphine Extended Release Tab) 15 mg PO Q12 [facility] Last Admin: 11/30/17 22:07 Dose: 15 mg Oxycodone/Acetaminophen (Percocet 5/325 Mg Tab) 1 tab PO Q6H PRN PRN Reason: Pain, severe (8-10) Stop: 12/02/17 07:28 Last Admin: 11/29/17 12:54 Dose: 1 tab Polyethylene Glycol (Miralax) 17 gm PO DAILY PRN PRN Reason: If no BM in 3 days Tamsulosin HCl (Flomax) 0.4 mg PO DAILY [facility] Last Admin: 11/30/17 10:09 Dose: 0.4 mg - Labs Labs: 12/01/17 06:53 12/01/17 06:53 PT 13.0 SECONDS (9.7-12.2) H 11/27/17 19:30 INR 1.2 11/27/17 19:30 APTT 31 SECONDS (21-34) 11/27/17 19:30 - Constitutional Appears: Well, Non-toxic, No Acute Distress - Head Exam Head Exam: ATRAUMATIC, NORMOCEPHALIC - Eye Exam Eye Exam: Normal appearance. absent: Conjunctival injection, Scleral icterus - ENT Exam ENT Exam: Mucous Membranes Moist, Normal Oropharynx - Respiratory Exam Respiratory Exam: NORMAL BREATHING PATTERN. absent: Accessory Muscle Use, Respiratory Distress - GI/Abdominal Exam GI & Abdominal Exam: Soft. absent: Distended, Tenderness - Extremities Exam Additional comments: left leg AKA revision incision well approximated by denita, no drainage or bleeding expressible, no surrounding erythema or ecchymosis, mildly tender to the touch - Neurological Exam Neurological Exam: Alert, Awake, Oriented x3 - Psychiatric Exam Psychiatric exam: Normal Affect, Normal Mood - Skin Skin Exam: Dry, Normal Color, Warm Assessment and Plan - Assessment and Plan (Free Text) Assessment: 72M POD#2 s/p revision of L AKA and removal of infected bypass graft Plan: Continue to monitor daily labs--wbc trending down, hgb 7.3 down from 7.8 but patient currently asymptomatic with stable HR and BP. No signs of active bleeding. Continue to monitor vitals but no transfusion for now Continue current pain regimen PT Would recommend changing zosyn to IV levaquin per culture sensitivities management per primary air mattress and optifoam for pressure ulcer, wound care consult Discussed with Dr.McGovern Elsie Suero, PGY2
[2017-12-01] MEDS: Morphine 15 mg SR Tab PO SCH ×2 (09:58→22:10)
[2017-12-01] MEDS: Ciprofloxacin 400mg/200ml D5W 400 MG/200 ML BAG IVPB SCH ×2 (11:00→22:11)
[2017-12-01] MEDS: HYDROmorphone 0.5 mg/0.5 ml ISec IVP PRN (21:02)
[2017-12-02] MEDS: Albuterol-Ipratrop 3 mg / 0.5 (3 ml) UD INH SCH ×4 (01:19→20:54)
[2017-12-02 07:46] LABS: ALB/GLOB RATIO 0.7 (1.0-2.1); ALT/SGPT 99 U/L (21-72); AST/SGOT 132 U/L (17-59); BLOOD UREA NITROGEN 7 mg/dL (9-20); CALCIUM 8.5 mg/dl (8.6-10.4); GFR AFRICAN-AMERICAN > 60; GFR NON-AFRICAN AMERICAN > 60
[2017-12-02 07:47] LABS: MEAN CELL VOLUME 88.6 fL (80.0-94.0); MEAN CORPUSCULAR HEMOGLOBIN 29.7 pg (27.0-31.0); MEAN CORPUSCULAR HGB CONC 33.5 g/dL (33.0-37.0); RBC 3.33 Mil/uL (4.40-5.90); RED CELL DISTRIBUTION WIDTH 15.4 % (11.5-14.5); WHITE BLOOD COUNT 14.5 K/uL (4.8-10.8)
[2017-12-02 07:48] LABS: BASO % 0.3 % (0.0-2.0); EOS # 0.4 K/uL (0.0-0.7); EOS % 3.1 % (0.0-4.0); LYMPH # 1.3 K/uL (1.0-4.3); LYMPH % 9.2 % (20.0-40.0); MONO # 0.9 K/uL (0.0-0.8); MONO % 6.5 % (0.0-10.0); NEUT # 11.8 K/uL (1.8-7.0); NEUT % 80.9 % (50.0-75.0); PLATELET COUNT 500 K/uL (130-400)
[2017-12-02 07:50] LABS: HEMOGLOBIN 9.9 g/dL (12.0-18.0)
[2017-12-02 08:35] LABS: ANISOCYTOSIS SLIGHT; EOSINOPHIL 1 % (0-4); LYMPHOCYTE 5 % (20-40); MONOCYTE 2 % (0-10); NEUTROPHIL 92 % (50-75); NUCLEATED RED BLOOD CELL 1 % (0-0); PLATELET ESTIMATE INCREASED (NORMAL); TOTAL CELLS COUNTED 100
[2017-12-02 08:36] LABS: HYPOCHROMIC SLIGHT; POLYCHROMIC SLIGHT; TARGET CELLS SLIGHT
[2017-12-02] MEDS: Morphine 15 mg SR Tab PO SCH ×2 (09:14→21:13)
--- NOTE | 2017-12-02 10:49 | CP.PCM.CON ---
History of Present Illness - History of Present Illness History of Present Illness: 72 yo male with multiple medical problems was admitted with sepsis secondary to infected graft left leg which was removed 72M with PMH of severe PVD and PSH of BL vascular intervention with bypass graft of the left lower extremity and BL AKA. Patient had been inpatient 10/12 for severe peripheral vascular disease due an occluided bypass graft of the left leg. Patient had an AKA at that time. Left leg surgery site had necrotic tissue and was expressing purulent material ID was consulted because of this Review of Systems - Review of Systems All systems: reviewed and no additional remarkable complaints except Past Patient History - Infectious Disease Hx of Infectious Diseases: None - Past Medical History & Family History Past Medical History?: Yes - Past Social History Smoking Status: Heavy Smoker > 10 Cigarettes Daily - CARDIAC Hx Cardiac Disorders: Yes - PULMONARY Hx Chronic Obstructive Pulmonary Disease (COPD): Yes - NEUROLOGICAL HX Cerebrovascular Accident: Yes - HEENT Hx HEENT Problems: No - RENAL Hx Chronic Kidney Disease: No - ENDOCRINE/METABOLIC Hx Endocrine Disorders: No - HEMATOLOGICAL/ONCOLOGICAL Hx Blood Disorders: No - INTEGUMENTARY Hx Dermatological Problems: Yes Hx Last: Yes - MUSCULOSKELETAL/RHEUMATOLOGICAL Hx Musculoskeletal Disorders: Yes Hx Falls: No Other/Comment: B/L BKA - GASTROINTESTINAL Hx Gastrointestinal Disorders: Yes Hx Constipation: Yes Hx Ulcer: Yes (gastric) - GENITOURINARY/GYNECOLOGICAL Hx Genitourinary Disorders: Yes - PSYCHIATRIC Hx Substance Use: No - SURGICAL HISTORY Hx Surgeries: Yes Hx Amputation: Yes (b/l BKA) - ANESTHESIA Hx Anesthesia: Yes Hx Anesthesia Reactions: No Hx Malignant Hyperthermia: No Meds Allergies/Adverse Reactions: Allergies Allergy/AdvReac Type Severity Reaction Status Date / Time No Known Allergies Allergy Verified 11/27/17 17:56 - Medications Medications: Current Medications Albuterol/Ipratropium (Duoneb 3 Mg/0.5 Mg (3 Ml) Ud) 3 ml INH RQ6 [facility] Last Admin: 12/02/17 08:08 Dose: 3 ml Docusate Sodium (Colace) 100 mg PO TID [facility] Last Admin: 12/02/17 09:14 Dose: 100 mg Hydromorphone HCl (Dilaudid) 0.5 mg IVP Q6H PRN PRN Reason: Pain, severe (8-10) Last Admin: 12/01/17 21:02 Dose: 0.5 mg Vancomycin/Sodium Chloride (Vancomycin 1 Gm/Ns 200 Ml) 1 gm in 200 mls @ 133 mls/hr IVPB Q12H [facility] PRN Reason: Protocol Stop: 12/03/17 10:01 Last Admin: 11/30/17 10:14 Dose: 133 mls/hr Morphine Sulfate (Morphine Extended Release Tab) 15 mg PO Q12 [facility] Last Admin: 12/02/17 09:14 Dose: 15 mg Polyethylene Glycol (Miralax) 17 gm PO DAILY PRN PRN Reason: If no BM in 3 days Tamsulosin HCl (Flomax) 0.4 mg PO DAILY [facility] Last Admin: 12/02/17 09:14 Dose: 0.4 mg Physical Exam - Constitutional Appears: Non-toxic, Confused, Cachectic, Chronically Ill - Head Exam Head Exam: ATRAUMATIC, NORMAL INSPECTION, NORMOCEPHALIC - Eye Exam Eye Exam: EOMI, PERRL. absent: Scleral icterus - ENT Exam ENT Exam: Mucous Membranes Dry, Normal External Ear Exam - Neck Exam Neck exam: Negative for: Lymphadenopathy - Respiratory Exam Respiratory Exam: Decreased Breath Sounds - Cardiovascular Exam Cardiovascular Exam: REGULAR RHYTHM - GI/Abdominal Exam GI & Abdominal Exam: Diminished Bowel Sounds, Soft. absent: Tenderness - Rectal Exam Rectal Exam: Deferred - Exam Exam: NORMAL INSPECTION - Extremities Exam Extremities exam: Negative for: pedal edema Additional comments: bilat AKA - Back Exam Back exam: absent: CVA tenderness (L), CVA tenderness (R) - Neurological Exam Neurological exam: Alert, Altered - Psychiatric Exam Psychiatric exam: Depressed - Skin Skin Exam: Dry Results - Vital Signs Recent Vital Signs: Last Vital Signs Temp 98.0 F 12/02/17 08:40 Pulse 85 12/02/17 08:40 Resp 20 12/02/17 08:40 BP 131/70 12/02/17 08:40 Pulse Ox 99 12/02/17 08:40 - Labs Result Diagrams: 12/02/17 07:12 12/02/17 07:12 Labs: Laboratory Results - last 24 hr 11/27/17 12/01/17 12/01/17 20:24 12:12 12:18 WBC RBC Hgb Hct MCV MCH MCHC RDW Plt Count MPV Neut % (Auto) Lymph % (Auto) Emmons % (Auto) Eos % (Auto) Baso % (Auto) Neut # (Auto) Lymph # (Auto) Emmons # (Auto) Eos # (Auto) Baso # (Auto) Neutrophils % (Manual) Lymphocytes % (Manual) Monocytes % (Manual) Eosinophils % (Manual) Nucleated RBC % Platelet Estimate Polychromasia Hypochromasia (manual) Anisocytosis (manual) Target Cells Sodium Potassium Chloride Carbon Dioxide Anion Gap BUN Creatinine Est GFR ( Amer) Est GFR (Non-Af Amer) POC Glucose (mg/dL) 144 H Random Glucose Calcium Phosphorus Magnesium Total Bilirubin AST ALT Alkaline Phosphatase Total Protein Albumin Globulin Albumin/Globulin Ratio Vancomycin Trough Blood Type O POSITIVE O POSITIVE Antibody Screen Positive Positive Antibody Identification Anti Jka Cancelled Antibody ID ([facility]) Inconclusive Panel ARIANNE, Poly Interpret Positive H 12/01/17 12/01/17 12/01/17 17:20 20:51 21:02 WBC RBC Hgb Hct MCV MCH MCHC RDW Plt Count MPV Neut % (Auto) Lymph % (Auto) Emmons % (Auto) Eos % (Auto) Baso % (Auto) Neut # (Auto) Lymph # (Auto) Emmons # (Auto) Eos # (Auto) Baso # (Auto) Neutrophils % (Manual) Lymphocytes % (Manual) Monocytes % (Manual) Eosinophils % (Manual) Nucleated RBC % Platelet Estimate Polychromasia Hypochromasia (manual) Anisocytosis (manual) Target Cells Sodium Potassium Chloride Carbon Dioxide Anion Gap BUN Creatinine Est GFR ( Amer) Est GFR (Non-Af Amer) POC Glucose (mg/dL) 114 H 117 H Random Glucose Calcium Phosphorus Magnesium Total Bilirubin AST ALT Alkaline Phosphatase Total Protein Albumin Globulin Albumin/Globulin Ratio Vancomycin Trough 7.6 Blood Type Antibody Screen Antibody Identification Antibody ID ([facility]) ARIANNE, Poly Interpret 12/02/17 12/02/17 12/02/17 06:21 07:12 07:12 WBC 14.5 H RBC 3.33 L Hgb 9.9 L D Hct 29.5 L MCV 88.6 MCH 29.7 MCHC 33.5 RDW 15.4 H Plt Count 500 H MPV 8.0 Neut % (Auto) 80.9 H Lymph % (Auto) 9.2 L Emmons % (Auto) 6.5 Eos % (Auto) 3.1 Baso % (Auto) 0.3 Neut # (Auto) 11.8 H Lymph # (Auto) 1.3 Emmons # (Auto) 0.9 H Eos # (Auto) 0.4 Baso # (Auto) 0.0 Neutrophils % (Manual) 92 H Lymphocytes % (Manual) 5 L Monocytes % (Manual) 2 Eosinophils % (Manual) 1 Nucleated RBC % 1 H Platelet Estimate Increased H Polychromasia Slight Hypochromasia (manual) Slight Anisocytosis (manual) Slight Target Cells Slight Sodium 140 Potassium 3.8 Chloride 102 Carbon Dioxide 25 Anion Gap 17 BUN 7 L Creatinine 0.6 L Est GFR ( Amer) > 60 Est GFR (Non-Af Amer) > 60 POC Glucose (mg/dL) 88 Random Glucose 111 H Calcium 8.5 L Phosphorus 3.3 Magnesium 2.2 Total Bilirubin 1.0 AST 132 H D ALT 99 H D Alkaline Phosphatase 132 H Total Protein 7.1 Albumin 3.0 L Globulin 4.1 H Albumin/Globulin Ratio 0.7 L Vancomycin Trough Blood Type Antibody Screen Antibody Identification Antibody ID ([facility]) ARIANNE, Poly Interpret Assessment & Plan (1) Sepsis affecting skin Status: Acute (2) Atherosclerotic PVD with ulceration Status: Acute Priority: High (3) Cellulitis Status: Acute - Assessment and Plan (Free Text) Assessment: ok to d/c vanco as cultures + MSSA however blood c/s neg continue IV antibiotics for min 7 days post op ( day 3? now) then possible PO conversion if stable
[2017-12-02] MEDS: Vancomycin 1 gm/NS 200 ml 1 GM/200 ML BAG IVPB SCH (11:24)
[2017-12-02] MEDS: Piperacillin/Tazobact 3.375 GM in Sodium Chloride 100 ML IVPB SCH ×2 (12:36→19:40)
--- NOTE | 2017-12-02 13:12 | CP.PCM.PN ---
Subjective - Date & Time of Evaluation Date of Evaluation: 12/02/17 Time of Evaluation: 07:00 - Subjective Subjective: Surgery: Dr. Padilla Pt seen and examined. No acute overnight events. Pt continues to have post-op pain but otherwise denies complaints. Denies N/V, F/C. Objective - Vital Signs/Intake and Output Vital Signs (last 24 hours): Temp Pulse Resp BP Pulse Ox 98.0 F 85 20 131/70 99 12/02/17 08:40 12/02/17 08:40 12/02/17 08:40 12/02/17 08:40 12/02/17 08:40 Intake and Output: 12/02/17 12/02/17 06:59 18:59 Output Total 1250 Balance -1250 - Medications Medications: Current Medications Albuterol/Ipratropium (Duoneb 3 Mg/0.5 Mg (3 Ml) Ud) 3 ml INH RQ6 [facility] Last Admin: 12/02/17 08:08 Dose: 3 ml Docusate Sodium (Colace) 100 mg PO TID [facility] Last Admin: 12/02/17 09:14 Dose: 100 mg Hydromorphone HCl (Dilaudid) 0.5 mg IVP Q6H PRN PRN Reason: Pain, severe (8-10) Last Admin: 12/01/17 21:02 Dose: 0.5 mg Piperacillin Sod/Tazobactam (Sod 3.375 gm/ Sodium Chloride) 100 mls @ 200 mls/ hr IVPB Q8H [facility] PRN Reason: Protocol Last Admin: 12/02/17 12:36 Dose: 200 mls/hr Morphine Sulfate (Morphine Extended Release Tab) 15 mg PO Q12 [facility] Last Admin: 12/02/17 09:14 Dose: 15 mg Polyethylene Glycol (Miralax) 17 gm PO DAILY PRN PRN Reason: If no BM in 3 days Saccharomyces Boulardii (Florastor) 250 mg PO BID [facility] Tamsulosin HCl (Flomax) 0.4 mg PO DAILY [facility] Last Admin: 12/02/17 09:14 Dose: 0.4 mg - Labs Labs: 12/02/17 07:12 12/02/17 07:12 PT 13.0 SECONDS (9.7-12.2) H 11/27/17 19:30 INR 1.2 11/27/17 19:30 APTT 31 SECONDS (21-34) 11/27/17 19:30 - Constitutional Appears: No Acute Distress - Head Exam Head Exam: ATRAUMATIC, NORMOCEPHALIC - ENT Exam ENT Exam: Mucous Membranes Moist - Respiratory Exam Respiratory Exam: NORMAL BREATHING PATTERN - Cardiovascular Exam Cardiovascular Exam: RRR - GI/Abdominal Exam GI & Abdominal Exam: Soft - Extremities Exam Additional comments: L AKA stump with denita in place, C/D/I - Neurological Exam Neurological Exam: Alert, Awake - Skin Skin Exam: Dry, Warm Assessment and Plan - Assessment and Plan (Free Text) Assessment: 72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 Padilla in 3-4 weeks for suture/staple removal - d/w Dr. Randy Roberson, PGY-3
[2017-12-02] MEDS: HYDROmorphone 0.5 mg/0.5 ml ISec IVP PRN (14:40)
[2017-12-02] MEDS ORDERED: Oxycodone/Acetaminophen 5/325 mg Tab PO PRN (16:11)
--- NOTE | 2017-12-02 16:34 | CP.PCM.PN ---
Subjective - Date & Time of Evaluation Date of Evaluation: 12/02/17 Time of Evaluation: 16:34 - Subjective Subjective: Patient seen and examined at bedside Still pleasantly demented. Follows commands but many times does not know where he is Was complaining of pain in the leg earlier No other complaints at this time. Objective - Vital Signs/Intake and Output Vital Signs (last 24 hours): Temp Pulse Resp BP Pulse Ox 97.4 F L 93 H 20 99/62 L 100 12/02/17 15:33 12/02/17 15:33 12/02/17 15:33 12/02/17 15:33 12/02/17 15:33 Intake and Output: 12/02/17 12/02/17 06:59 18:59 Output Total 1250 Balance -1250 - Medications Medications: Current Medications Albuterol/Ipratropium (Duoneb 3 Mg/0.5 Mg (3 Ml) Ud) 3 ml INH RQ6 [facility] Last Admin: 12/02/17 13:43 Dose: 3 ml Docusate Sodium (Colace) 100 mg PO TID [facility] Last Admin: 12/02/17 14:45 Dose: Not Given Hydromorphone HCl (Dilaudid) 0.5 mg IVP Q6H PRN PRN Reason: Pain, severe (8-10) Last Admin: 12/02/17 14:40 Dose: 0.5 mg Piperacillin Sod/Tazobactam (Sod 3.375 gm/ Sodium Chloride) 100 mls @ 200 mls/ hr IVPB Q8H [place] PRN Reason: Protocol Last Admin: 12/02/17 12:36 Dose: 200 mls/hr Morphine Sulfate (Morphine Extended Release Tab) 15 mg PO Q12 [facility] Last Admin: 12/02/17 09:14 Dose: 15 mg Oxycodone/Acetaminophen (Percocet 5/325 Mg Tab) 1 tab PO Q6H PRN PRN Reason: Pain, severe (8-10) Stop: 12/05/17 16:12 Polyethylene Glycol (Miralax) 17 gm PO DAILY PRN PRN Reason: If no BM in 3 days Saccharomyces Boulardii (Florastor) 250 mg PO BID [facility] Tamsulosin HCl (Flomax) 0.4 mg PO DAILY [facility] Last Admin: 12/02/17 09:14 Dose: 0.4 mg - Labs Labs: 12/02/17 07:12 12/02/17 07:12 PT 13.0 SECONDS (9.7-12.2) H 11/27/17 19:30 INR 1.2 11/27/17 19:30 APTT 31 SECONDS (21-34) 11/27/17 19:30 - Constitutional Appears: Non-toxic - Head Exam Head Exam: ATRAUMATIC, NORMAL INSPECTION, NORMOCEPHALIC - Eye Exam Eye Exam: EOMI Pupil Exam: NORMAL ACCOMODATION - ENT Exam ENT Exam: Mucous Membranes Moist - Neck Exam Neck Exam: Full ROM - Respiratory Exam Respiratory Exam: Clear to Ausculation Bilateral, NORMAL BREATHING PATTERN - Cardiovascular Exam Cardiovascular Exam: REGULAR RHYTHM - GI/Abdominal Exam GI & Abdominal Exam: Soft, Normal Bowel Sounds. absent: Distended, Tenderness - Extremities Exam Additional comments: Stage 1 pressure ulcer on posterior aspect of R. Shoulder Sacral ulcer stage 2 L. aka dressing clean dry intact. - Neurological Exam Neurological Exam: Alert, Awake Assessment and Plan - Assessment and Plan (Free Text) Assessment: S/P AKA (above knee amputation) S/P left revision of AKA with graft removal Incentive spirometer ordered wound culture 11/28/17- MSSA, Continue Zosyn until 12/05/17 then switch to PO Augmentin 875 BID for additional 7 days with wound checks Morphine ER 15 PO Q12 [place] Perc 1 tab q6 for breakthru Dilaudid 0.5 mg IVP Q6 Miralax/Colace for constipation ID - [place] Anemia Assessment & Plan: transfused 2 units 11/28/17 h/h stable Prophylactic measure Hold anticoag due to bleeding SCD CI No GI PPX indicated at this time Ensure Enlive [facility]HD pt/ot Discharge to [facility] after PICC tomorrow
[2017-12-02] MEDS: Saccharomyces Boulardi 250 mg Cap PO SCH (18:14)
[2017-12-02] MEDS: Oxycodone/Acetaminophen 5/325 mg Tab PO PRN (18:14)
[2017-12-03] MEDS: Albuterol-Ipratrop 3 mg / 0.5 (3 ml) UD INH SCH ×3 (01:24→13:09)
[2017-12-03] MEDS: HYDROmorphone 0.5 mg/0.5 ml ISec IVP PRN ×2 (03:29→13:48)
[2017-12-03] MEDS: Piperacillin/Tazobact 3.375 GM in Sodium Chloride 100 ML IVPB SCH ×2 (03:31→11:58)
[2017-12-03] MEDS: Oxycodone/Acetaminophen 5/325 mg Tab PO PRN (05:48)
--- NOTE | 2017-12-03 07:30 | CP.PCM.DIS ---
<Aat Yanes - Last Filed: 12/03/17 09:26> Provider - Provider Date of Admission: 11/27/17 20:34 Attending physician: Maurizio Hayes MD Primary care physician: cheng Consults: Randy Time Spent in preparation of Discharge (in minutes): 45 Hospital Course - Lab Results Lab Results: Micro Results 11/27/17 19:50 Blood Blood Culture - Final NO GROWTH AFTER 5 DAYS 11/27/17 19:50 Blood Gram Stain - Final TEST NOT PERFORMED 11/27/17 19:20 Blood Blood Culture - Final NO GROWTH AFTER 5 DAYS 11/27/17 19:20 Blood Gram Stain - Final TEST NOT PERFORMED 11/30/17 09:00 Blood Blood Culture - Preliminary NO GROWTH AFTER 48 HOURS 11/30/17 09:30 Blood Blood Culture - Preliminary NO GROWTH AFTER 48 HOURS 11/29/17 16:30 Leg - Left Gram Stain - Final 11/29/17 16:30 Leg - Left Wound Culture - Final Staphylococcus Aureus 11/30/17 08:57 Urine,Clean Catch Urine Culture - Final No Growth (<1,000 CFU/ML) 11/28/17 00:57 Leg - Left Gram Stain - Final 11/28/17 00:57 Leg - Left Wound Culture - Final Staphylococcus Aureus 11/27/17 19:07 Urine Urine Culture - Final No Growth (<1,000 CFU/ML) Most Recent Lab Values WBC 14.5 K/uL (4.8-10.8) H 12/02/17 07:12 RBC 3.33 Mil/uL (4.40-5.90) L 12/02/17 07:12 Hgb 9.9 g/dL (12.0-18.0) L D 12/02/17 07:12 Hct 29.5 % (35.0-51.0) L 12/02/17 07:12 MCV 88.6 fL (80.0-94.0) 12/02/17 07:12 MCH 29.7 pg (27.0-31.0) 12/02/17 07:12 MCHC 33.5 g/dL (33.0-37.0) 12/02/17 07:12 RDW 15.4 % (11.5-14.5) H 12/02/17 07:12 Plt Count 500 K/uL (130-400) H 12/02/17 07:12 MPV 8.0 fL (7.2-11.7) 12/02/17 07:12 Neut % (Auto) 80.9 % (50.0-75.0) H 12/02/17 07:12 Lymph % (Auto) 9.2 % (20.0-40.0) L 12/02/17 07:12 Haines % (Auto) 6.5 % (0.0-10.0) 12/02/17 07:12 Eos % (Auto) 3.1 % (0.0-4.0) 12/02/17 07:12 Baso % (Auto) 0.3 % (0.0-2.0) 12/02/17 07:12 Neut # (Auto) 11.8 K/uL (1.8-7.0) H 12/02/17 07:12 Lymph # (Auto) 1.3 K/uL (1.0-4.3) 12/02/17 07:12 Haines # (Auto) 0.9 K/uL (0.0-0.8) H 12/02/17 07:12 Eos # (Auto) 0.4 K/uL (0.0-0.7) 12/02/17 07:12 Baso # (Auto) 0.0 K/uL (0.0-0.2) 12/02/17 07:12 Neutrophils % (Manual) 92 % (50-75) H 12/02/17 07:12 Band Neutrophils % 5 % (0-2) H 11/29/17 08:09 Lymphocytes % (Manual) 5 % (20-40) L 12/02/17 07:12 Monocytes % (Manual) 2 % (0-10) 12/02/17 07:12 Eosinophils % (Manual) 1 % (0-4) 12/02/17 07:12 Metamyelocytes % 1 % (0-0) H 11/30/17 08:36 Nucleated RBC % 1 % (0-0) H 12/02/17 07:12 Differential Comment 11/29/17 20:00 Platelet Estimate Increased (NORMAL) H 12/02/17 07:12 Polychromasia Slight 12/02/17 07:12 Hypochromasia (manual) Slight 12/02/17 07:12 Anisocytosis (manual) Slight 12/02/17 07:12 Target Cells Slight 12/02/17 07:12 Ovalocytes Slight 11/30/17 08:36 PT 13.0 SECONDS (9.7-12.2) H 11/27/17 19:30 INR 1.2 11/27/17 19:30 APTT 31 SECONDS (21-34) 11/27/17 19:30 pO2 20 mm/Hg (30-55) L 11/27/17 22:30 VBG pH 7.42 (7.32-7.43) 11/27/17 22:30 VBG pCO2 43 mmHg (40-60) 11/27/17 22:30 VBG HCO3 25.4 mmol/L 11/27/17:30 VBG Total CO2 29.2 mmol/L (22-28) H 11/27/17 22:30 VBG O2 Sat (Calc) 35.4 % (40-65) L 11/27/17 22:30 VBG Base Excess 2.9 mmol/L (0.0-2.0) H 11/27/17 22:30 VBG Potassium 4.2 mmol/L (3.6-5.2) 11/27/17 22:30 Sodium 142.0 mmol/l (132-148) 11/27/17 22:30 Chloride 112.0 mmol/L (98-107) H 11/27/17 22:30 Glucose 143 mg/dl (75-110) H 11/27/17 22:30 Lactate 1.1 mmol/L (0.7-2.1) 11/27/17 22:30 Sodium 140 mmol/L (132-148) 12/02/17 07:12 Potassium 3.8 mmol/L (3.6-5.2) 12/02/17 07:12 Chloride 102 mmol/L (98-107) 12/02/17 07:12 Carbon Dioxide 25 mmol/L (22-30) 12/02/17 07:12 Anion Gap 17 (10-20) 12/02/17 07:12 BUN 7 mg/dL (9-20) L 12/02/17 07:12 Creatinine 0.6 mg/dL (0.8-1.5) L 12/02/17 07:12 Est GFR ( Amer) > 60 12/02/17 07:12 Est GFR (Non-Af Amer) > 60 12/02/17 07:12 POC Glucose (mg/dL) 110 mg/dL (65-110) 12/03/17 06:16 Random Glucose 111 mg/dL (75-110) H 12/02/17 07:12 Calcium 8.5 mg/dl (8.6-10.4) L 12/02/17 07:12 Phosphorus 3.3 mg/dL (2.5-4.5) 12/02/17 07:12 Magnesium 2.2 mg/dL (1.6-2.3) 12/02/17 07:12 Total Bilirubin 1.0 mg/dL (0.2-1.3) 12/02/17 07:12 AST 132 U/L (17-59) H D 12/02/17 07:12 ALT 99 U/L (21-72) H D 12/02/17 07:12 Alkaline Phosphatase 132 U/L (38-126) H 12/02/17 07:12 Total Protein 7.1 g/dL (6.3-8.3) 12/02/17 07:12 Albumin 3.0 g/dL (3.5-5.0) L 12/02/17 07:12 Globulin 4.1 gm/dL (2.2-3.9) H 12/02/17 07:12 Albumin/Globulin Ratio 0.7 (1.0-2.1) L 12/02/17 07:12 Venous Blood Potassium 4.2 mmol/L (3.6-5.2) 11/27/17 22:30 Urine Color Yellow (YELLOW) 11/30/17 09:18 Urine Clarity Clear (Clear) 11/30/17 09:18 Urine pH 5.0 (5.0-8.0) 11/30/17 09:18 Ur Specific [place] 1.019 (1.003-1.030) 11/30/17 09:18 Urine Protein Negative mg/dL (NEGATIVE) 11/30/17 09:18 Urine Glucose (UA) Normal mg/dL (Normal) 11/30/17 09:18 Urine Ketones 1+ mg/dL (NEGATIVE) H 11/30/17 09:18 Urine Blood 1+ (NEGATIVE) H 11/30/17 09:18 Urine Nitrate Negative (NEGATIVE) 11/30/17 09:18 Urine Bilirubin Negative (NEGATIVE) 11/30/17 09:18 Urine Urobilinogen 4.0 mg/dL (0.2-1.0) 11/30/17 09:18 Ur Leukocyte Esterase Neg Jorge/uL (Negative) 11/30/17 09:18 Urine WBC (Auto) 5 /hpf (0-5) 11/30/17 09:18 Urine RBC (Auto) 15 /hpf (0-3) H 11/30/17 09:18 Ur Squamous Epith Cells 2 /hpf (0-5) 11/27/17 20:37 Urine Bacteria Rare (<OCC) 11/27/17 20:37 Vancomycin Trough 7.6 ug/mL (5.0-10.0) 12/01/17 20:51 RPR Nonreactive (NONREACTIVE) 11/29/17 21:03 Hepatitis A IgM Ab Negative (NEGATIVE) 11/29/17 20:00 Hep Bs Antigen Negative (NEGATIVE) 11/29/17 20:00 Hep Bs Antibody Negative (NEGATIVE) 11/29/17 20:00 Hep B Core IgM Ab Negative (NEGATIVE) 11/29/17 20:00 Hepatitis C Antibody Negative (NEGATIVE) 11/29/17 20:00 HIV 1&2 Antibody Screen Negative (NEGATIVE) 11/29/17 20:00 Blood Type O POSITIVE 12/01/17 12:12 Antibody Screen Positive 12/01/17 12:12 Antibody Identification Anti Jka 11/27/17 20:24 Antibody ID (Elution) Inconclusive Panel 11/27/17 20:24 ARIANNE, Poly Interpret Positive (NEGATIVE) H 11/27/17 20:24 - Hospital Course Hospital Course: Code Status: DNR/DNI; patient is currently lucid, ANOx3, with intact decision making responsibilities; states that son does not make medical decisions for him but if he becomes impaired that he can. Number in computer. This patient is a 72yo [place] Speaking M coming from the senior living for abnormal labs. He states he feels fine, and upon questioning is complaining of a nonproductive cough for the past week. He states it is not associated with fevers/chills, [place], CP, SOB, abdominal pain, N/V/D, dysuria/freq/urg, or lower extremity pain. 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 Hospital Course: Patient was started on vanco and zosyn IV. Had bedside debridment by surgery resident and then was taken to OR for graft removal as it was infected. None of the imaging reflected osteo. ID was consulted as the culture was MSSA. He is going to have PICC inserted before discharge. He will need to continue Zosyn until 12/05 and then start augmentin 875 PO BID for 7 days starting on 12/06 with daily wound checks. He will also need local wound care on his posterior right shoulder and sacral ulcer with medihoney and optifoam daily. Of note he was found to be anemic with a H/H of 7.3 but was transfused 2 units PRBC and H/H remained stable. The remainder of his stay was uncomplicated. Discharge Exam - Head Exam Head Exam: ATRAUMATIC, NORMAL INSPECTION, NORMOCEPHALIC - Additional Findings Additional findings: - Constitutional Appears: Non-toxic - Head Exam Head Exam: ATRAUMATIC, NORMAL INSPECTION, NORMOCEPHALIC - Eye Exam Eye Exam: EOMI Pupil Exam: NORMAL ACCOMODATION - ENT Exam ENT Exam: Mucous Membranes Moist - Neck Exam Neck Exam: Full ROM - Respiratory Exam Respiratory Exam: Clear to Ausculation Bilateral, NORMAL BREATHING PATTERN - Cardiovascular Exam Cardiovascular Exam: REGULAR RHYTHM - GI/Abdominal Exam GI & Abdominal Exam: Soft, Normal Bowel Sounds. absent: Distended, Tenderness - Extremities Exam Additional comments: Stage 1 pressure ulcer on posterior aspect of R. Shoulder Sacral ulcer stage 2 L. aka dressing clean dry intact. - Neurological Exam Neurological Exam: Alert, Awake Discharge Plan - Discharge Medications Prescriptions: Amoxicillin/Clavulanate [Augmentin 875 MG-125 MG] 1 tab PO BID #14 tab Piperacillin/Tazobact [Zosyn] 3.375 gm IVPB Q6H 3 Days vial Saccharomyces Boulardi [Florastor] 250 mg PO BID #60 cap - Follow Up Plan Condition: FAIR Disposition: REHAB FACILITY/REHAB UNIT Instructions: Saccharomyces boulardii, Peripherally-Inserted Central Catheter, Amoxicillin and Clavulanate, Piperacillin and Tazobactam, Cellulitis (DC), Sepsis (DC) Additional Instructions: Please follow up with Dr. Padilla in 3-4 weeks for staple removal Please continue IV Zosyn for additional 3 days (end on 12/05/17) and then switch to Augmentin 875mg BID for 7 days with daily wound checks starting on 12/06/17 Please continue your home medications as i have listed in you Medication reconciliation Please apply medihoney and optifoam dressing to right posterior shoulder ulcer as well as sacral ulcer Referrals: Yogesh Padilla Jr., MD [Staff Provider] - <Isaias Casey - Last Filed: 12/03/17 19:48> Provider - Provider Date of Admission: 11/27/17 20:34 Attending physician: Maurizio Hayes MD Time Spent in preparation of Discharge (in minutes): 40 Hospital Course - Lab Results Lab Results: Micro Results 11/30/17 09:00 Blood Blood Culture - Preliminary NO GROWTH AFTER 3 DAYS 11/30/17 09:30 Blood Blood Culture - Preliminary NO GROWTH AFTER 3 DAYS 11/27/17 19:50 Blood Blood Culture - Final NO GROWTH AFTER 5 DAYS 11/27/17 19:50 Blood Gram Stain - Final TEST NOT PERFORMED 11/27/17 19:20 Blood Blood Culture - Final NO GROWTH AFTER 5 DAYS 11/27/17 19:20 Blood Gram Stain - Final TEST NOT PERFORMED 11/29/17 16:30 Leg - Left Gram Stain - Final 11/29/17 16:30 Leg - Left Wound Culture - Final Staphylococcus Aureus 11/30/17 08:57 Urine,Clean Catch Urine Culture - Final No Growth (<1,000 CFU/ML) 11/28/17 00:57 Leg - Left Gram Stain - Final 11/28/17 00:57 Leg - Left Wound Culture - Final Staphylococcus Aureus 11/27/17 19:07 Urine Urine Culture - Final No Growth (<1,000 CFU/ML) Most Recent Lab Values WBC 10.4 K/uL (4.8-10.8) 12/03/17 08:50 RBC 3.34 Mil/uL (4.40-5.90) L 12/03/17 08:50 Hgb 10.2 g/dL (12.0-18.0) L 12/03/17 08:50 Hct 29.6 % (35.0-51.0) L 12/03/17 08:50 MCV 88.7 fL (80.0-94.0) 12/03/17 08:50 MCH 30.5 pg (27.0-31.0) 12/03/17 08:50 MCHC 34.4 g/dL (33.0-37.0) 12/03/17 08:50 RDW 15.6 % (11.5-14.5) H 12/03/17 08:50 Plt Count 554 K/uL (130-400) H 12/03/17 08:50 MPV 8.1 fL (7.2-11.7) 12/03/17 08:50 Neut % (Auto) 71.4 % (50.0-75.0) 12/03/17 08:50 Lymph % (Auto) 16.2 % (20.0-40.0) L 12/03/17 08:50 Haines % (Auto) 7.3 % (0.0-10.0) 12/03/17 08:50 Eos % (Auto) 4.8 % (0.0-4.0) H 12/03/17 08:50 Baso % (Auto) 0.3 % (0.0-2.0) 12/03/17 08:50 Neut # (Auto) 7.4 K/uL (1.8-7.0) H 12/03/17 08:50 Lymph # (Auto) 1.7 K/uL (1.0-4.3) 12/03/17 08:50 Haines # (Auto) 0.8 K/uL (0.0-0.8) 12/03/17 08:50 Eos # (Auto) 0.5 K/uL (0.0-0.7) 12/03/17 08:50 Baso # (Auto) 0.0 K/uL (0.0-0.2) 12/03/17 08:50 Neutrophils % (Manual) 92 % (50-75) H 12/02/17 07:12 Band Neutrophils % 5 % (0-2) H 11/29/17 08:09 Lymphocytes % (Manual) 5 % (20-40) L 12/02/17 07:12 Monocytes % (Manual) 2 % (0-10) 12/02/17 07:12 Eosinophils % (Manual) 1 % (0-4) 12/02/17 07:12 Metamyelocytes % 1 % (0-0) H 11/30/17 08:36 Nucleated RBC % 1 % (0-0) H 12/02/17 07:12 Differential Comment 11/29/17 20:00 Platelet Estimate Increased (NORMAL) H 12/02/17 07:12 Polychromasia Slight 12/02/17 07:12 Hypochromasia (manual) Slight 12/02/17 07:12 Anisocytosis (manual) Slight 12/02/17 07:12 Target Cells Slight 12/02/17 07:12 Ovalocytes Slight 11/30/17 08:36 PT 13.0 SECONDS (9.7-12.2) H 11/27/17 19:30 INR 1.2 11/27/17 19:30 APTT 31 SECONDS (21-34) 11/27/17 19:30 pO2 20 mm/Hg (30-55) L 11/27/17 22:30 VBG pH 7.42 (7.32-7.43) 11/27/17 22:30 VBG pCO2 43 mmHg (40-60) 11/27/17 22:30 VBG HCO3 25.4 mmol/L 11/27/17 22:30 VBG Total CO2 29.2 mmol/L (22-28) H 11/27/17 22:30 VBG O2 Sat (Calc) 35.4 % (40-65) L 11/27/17 22:30 VBG Base Excess 2.9 mmol/L (0.0-2.0) H 11/27/17 22:30 VBG Potassium 4.2 mmol/L (3.6-5.2) 11/27/17 22:30 Sodium 142.0 mmol/l (132-148) 11/27/17 22:30 Chloride 112.0 mmol/L (98-107) H 11/27/17 22:30 Glucose 143 mg/dl (75-110) H 11/27/17 22:30 Lactate 1.1 mmol/L (0.7-2.1) 11/27/17 22:30 Sodium 134 mmol/L (132-148) 12/03/17 08:50 Potassium 3.7 mmol/L (3.6-5.2) 12/03/17 08:50 Chloride 102 mmol/L (98-107) 12/03/17 08:50 Carbon Dioxide 26 mmol/L (22-30) 12/03/17 08:50 Anion Gap 9 (10-20) L 12/03/17 08:50 BUN 12 mg/dL (9-20) 12/03/17 08:50 Creatinine 0.6 mg/dL (0.8-1.5) L 12/03/17 08:50 Est GFR ( Amer) > 60 12/03/17 08:50 Est GFR (Non-Af Amer) > 60 12/03/17 08:50 POC Glucose (mg/dL) 110 mg/dL (65-110) 12/03/17 06:16 Random Glucose 116 mg/dL (75-110) H 12/03/17 08:50 Calcium 8.6 mg/dl (8.6-10.4) 12/03/17 08:50 Phosphorus 3.9 mg/dL (2.5-4.5) 12/03/17 08:50 Magnesium 2.3 mg/dL (1.6-2.3) 12/03/17 08:50 Total Bilirubin 0.8 mg/dL (0.2-1.3) 12/03/17 08:50 AST 141 U/L (17-59) H 12/03/17 08:50 ALT 151 U/L (21-72) H D 12/03/17 08:50 Alkaline Phosphatase 130 U/L (38-126) H 12/03/17 08:50 Total Protein 7.1 g/dL (6.3-8.3) 12/03/17 08:50 Albumin 3.1 g/dL (3.5-5.0) L 12/03/17 08:50 Globulin 4.0 gm/dL (2.2-3.9) H 12/03/17 08:50 Albumin/Globulin Ratio 0.8 (1.0-2.1) L 12/03/17 08:50 Venous Blood Potassium 4.2 mmol/L (3.6-5.2) 11/27/17 22:30 Urine Color Yellow (YELLOW) 11/30/17 09:18 Urine Clarity Clear (Clear) 11/30/17 09:18 Urine pH 5.0 (5.0-8.0) 11/30/17 09:18 Ur Specific [place] 1.019 (1.003-1.030) 11/30/17 09:18 Urine Protein Negative mg/dL (NEGATIVE) 11/30/17 09:18 Urine Glucose (UA) Normal mg/dL (Normal) 11/30/17 09:18 Urine Ketones 1+ mg/dL (NEGATIVE) H 11/30/17 09:18 Urine Blood 1+ (NEGATIVE) H 11/30/17 09:18 Urine Nitrate Negative (NEGATIVE) 11/30/17 09:18 Urine Bilirubin Negative (NEGATIVE) 11/30/17 09:18 Urine Urobilinogen 4.0 mg/dL (0.2-1.0) 11/30/17 09:18 Ur Leukocyte Esterase Neg Jorge/uL (Negative) 11/30/17 09:18 Urine WBC (Auto) 5 /hpf (0-5) 11/30/17 09:18 Urine RBC (Auto) 15 /hpf (0-3) H 11/30/17 09:18 Ur Squamous Epith Cells 2 /hpf (0-5) 11/27/17 20:37 Urine Bacteria Rare (<OCC) 11/27/17 20:37 Vancomycin Trough 7.6 ug/mL (5.0-10.0) 12/01/17 20:51 RPR Nonreactive (NONREACTIVE) 11/29/17 21:03 Hepatitis A IgM Ab Negative (NEGATIVE) 11/29/17 20:00 Hep Bs Antigen Negative (NEGATIVE) 11/29/17 20:00 Hep Bs Antibody Negative (NEGATIVE) 11/29/17 20:00 Hep B Core IgM Ab Negative (NEGATIVE) 11/29/17 20:00 Hepatitis C Antibody Negative (NEGATIVE) 11/29/17 20:00 HIV 1&2 Antibody Screen Negative (NEGATIVE) 11/29/17 20:00 Blood Type O POSITIVE 12/01/17 12:12 Antibody Screen Positive 12/01/17 12:12 Antibody Identification Anti Jka 11/27/17 20:24 Antibody ID (Elution) Inconclusive Panel 11/27/17 20:24 ARIANNE, Poly Interpret Positive (NEGATIVE) H 11/27/17 20:24 Attending/Attestation - Attestation I have personally seen and examined this patient.: Yes I have fully participated in the care of the patient.: Yes I have reviewed all pertinent clinical information, including history, physical exam and plan: Yes Notes (Text): 12/03/17 19:47 Patient was seen and examined shortly after resident. Exam, assessment and plan and discharge instructions were gone over with the resident. Isaias Casey D.O.
[2017-12-03 09:05] LABS: BASO % 0.3 % (0.0-2.0); EOS # 0.5 K/uL (0.0-0.7); EOS % 4.8 % (0.0-4.0); HEMOGLOBIN 10.2 g/dL (12.0-18.0); LYMPH # 1.7 K/uL (1.0-4.3); LYMPH % 16.2 % (20.0-40.0); MEAN CELL VOLUME 88.7 fL (80.0-94.0); MEAN CORPUSCULAR HEMOGLOBIN 30.5 pg (27.0-31.0); MEAN CORPUSCULAR HGB CONC 34.4 g/dL (33.0-37.0); MEAN PLATELET VOLUME 8.1 fL (7.2-11.7); MONO # 0.8 K/uL (0.0-0.8); MONO % 7.3 % (0.0-10.0); NEUT # 7.4 K/uL (1.8-7.0); NEUT % 71.4 % (50.0-75.0); RBC 3.34 Mil/uL (4.40-5.90); RED CELL DISTRIBUTION WIDTH 15.6 % (11.5-14.5); WHITE BLOOD COUNT 10.4 K/uL (4.8-10.8)
[2017-12-03 09:12] LABS: ALB/GLOB RATIO 0.8 (1.0-2.1); ALBUMIN 3.1 g/dL (3.5-5.0); ALT/SGPT 151 U/L (21-72); AST/SGOT 141 U/L (17-59); BLOOD UREA NITROGEN 12 mg/dL (9-20); CALCIUM 8.6 mg/dl (8.6-10.4); GFR AFRICAN-AMERICAN > 60; GFR NON-AFRICAN AMERICAN > 60
[2017-12-03] MEDS: Saccharomyces Boulardi 250 mg Cap PO SCH (10:42)
[2017-12-03] MEDS: Morphine 15 mg SR Tab PO SCH (10:42)
--- NOTE | 2017-12-03 11:42 | PCM.SURG1 ---
Surgeon's Initial Post Op Note - Surgeon's Notes Surgeon: Marcus Winter MD [facility] Social [facility] Teacher: NONE Type of Anesthesia: Local Pre-Operative Diagnosis: Infection Operative Findings: US showed patent left brachial vein Post-Operative Diagnosis: Infection Operation Performed: Single lumen picc left brachial vein, 39 cm. Tip is in the SVC. Specimen/Specimens Removed: none Estimated Blood Loss: EBL {In ML}: 2 Blood Products Given: N/A Drains Used: No Drains Post-Op Condition: Fair Date of Surgery/Procedure: 12/03/17 Time of Surgery/Procedure: 11:20
--- NOTE | 2017-12-03 12:08 | CP.PCM.PN ---
Subjective - Date & Time of Evaluation Date of Evaluation: 12/03/17 Time of Evaluation: 08:00 - Subjective Subjective: improving denies fever chills cough or SOB alert and responsive Objective - Vital Signs/Intake and Output Vital Signs (last 24 hours): Temp Pulse Resp BP Pulse Ox 97.3 F L 77 18 114/59 L 98 12/03/17 07:00 12/03/17 08:00 12/03/17 07:00 12/03/17 07:00 12/03/17 07:00 Intake and Output: 12/03/17 12/03/17 06:59 18:59 Output Total 200 Balance -200 - Medications Medications: Current Medications Albuterol/Ipratropium (Duoneb 3 Mg/0.5 Mg (3 Ml) Ud) 3 ml INH RQ6 [facility] Last Admin: 12/03/17 08:51 Dose: 3 ml Docusate Sodium (Colace) 100 mg PO TID [facility] Last Admin: 12/03/17 10:41 Dose: 100 mg Hydromorphone HCl (Dilaudid) 0.5 mg IVP Q6H PRN PRN Reason: Pain, severe (8-10) Last Admin: 12/03/17 03:29 Dose: 0.5 mg Piperacillin Sod/Tazobactam (Sod 3.375 gm/ Sodium Chloride) 100 mls @ 200 mls/ hr IVPB Q8H WAQAR PRN Reason: Protocol Last Admin: 12/03/17 11:58 Dose: 200 mls/hr Morphine Sulfate (Morphine Extended Release Tab) 15 mg PO Q12 [facility] Last Admin: 12/03/17 10:42 Dose: 15 mg Oxycodone/Acetaminophen (Percocet 5/325 Mg Tab) 1 tab PO Q6H PRN PRN Reason: Pain, moderate (4-7) Stop: 12/05/17 16:12 Last Admin: 12/03/17 05:48 Dose: 1 tab Polyethylene Glycol (Miralax) 17 gm PO DAILY PRN PRN Reason: If no BM in 3 days Saccharomyces Boulardii (Florastor) 250 mg PO BID [facility] Last Admin: 12/03/17 10:42 Dose: 250 mg Tamsulosin HCl (Flomax) 0.4 mg PO DAILY [facility] Last Admin: 12/03/17 10:42 Dose: 0.4 mg - Labs Labs: 12/03/17 08:50 12/03/17 08:50 PT 13.0 SECONDS (9.7-12.2) H 11/27/17 19:30 INR 1.2 11/27/17 19:30 APTT 31 SECONDS (21-34) 11/27/17 19:30 - Constitutional Appears: Non-toxic, Chronically Ill - Head Exam Head Exam: NORMOCEPHALIC - Eye Exam Eye Exam: PERRL - ENT Exam ENT Exam: Mucous Membranes Dry - Neck Exam Neck Exam: absent: Lymphadenopathy - Respiratory Exam Respiratory Exam: Decreased Breath Sounds - Cardiovascular Exam Cardiovascular Exam: REGULAR RHYTHM - GI/Abdominal Exam GI & Abdominal Exam: Distended - Rectal Exam Rectal Exam: Deferred - Exam Exam: NORMAL INSPECTION - Extremities Exam Extremities Exam: absent: Pedal Edema Additional comments: stump wounds dry - Back Exam Back Exam: absent: CVA tenderness (L), CVA tenderness (R) - Neurological Exam Neurological Exam: Alert, Awake, CN II-XII Intact Assessment and Plan (1) Sepsis affecting skin Status: Acute (2) Atherosclerotic PVD with ulceration Status: Acute (3) Cellulitis Status: Acute
--- NOTE | 2017-12-03 15:52 | RAD ---
PROCEDURE: Fluoroscopy up to 1 hr. HISTORY: FOR IV ACCESS COMPARISON: None TECHNIQUE: Standard protocol for this study/examination. FINDINGS: Total fluoroscopic time (continuous mode) utilized during the procedure 3.6 (seconds). Total exam DLP: MGy per meter squared 0.010 IMPRESSION: Less than 1 hr fluoroscopic time utilized during performance of the procedure.
[2017-12-03 16:49] VITALS: BP 130/70; PULSE 86; RESP 20; TEMP 97.7; O2SAT 95
--- NOTE | 2017-12-04 11:35 | US ---
PROCEDURE: Date of procedure: 12/03/2017 Procedure: 1. Placement of a left arm PICC with ultrasound and fluoroscopic guidance, CPT 76016 2. PICC tip confirmation with spot radiograph and is in the superior vena cava Medications: 1 percent lidocaine Total Fluoro time: 3.6 seconds Radiation: 0.1 MGy EBL: 3 cc HISTORY: Infection requiring long-term IV antibiotics TECHNIQUE: Following informed consent and procedure time-out, the patient placed supine on the interventional table and the left arm prepped and draped in the usual sterile fashion. Ultrasound showed a patent and compressible left basilic vein. After the skin was anesthetized with lidocaine, the basilic vein was accessed with micro micropuncture technique using ultrasound guidance. A guidewire was then advanced under fluoroscopic guidance into the superior vena cava. An image documenting ultrasound guidance for vascular access was permanently saved. The length of a single-lumen 4 Italian PICC was trimmed to 39 cm and advanced through a peel-away sheath. The PICC was position with tip of PICC confirm a spot radiograph the superior vena cava. The PICC was secured to the patient's skin. The PICC was flushed. A biopatch and sterile dressing was applied. IMPRESSION: Placement of a single-lumen 4 Italian PICC left basilic vein trimmed to 39 cm. The tip of the PICC is confirmed with spot radiograph and is in the superior vena cava.
== END 2017-12-03 16:51 | DRG 907 ==
LOC: C.ER 17:36 → C.9E 20:34 → C.6T 22:04
PROVIDERS: ADMIT Family Medicine; ATTEND Family Medicine
PROC: 0Y6D0Z1 Detachment at Left Upper Leg, High, Open Approach (ICD-10-PCS; 2017-11-29)
PROC: 02HV33Z Insertion of Infusion Device into Superior Vena Cava, Percutaneous Approach (ICD-10-PCS; principal; 2017-12-03)
DX: T85.79XA Infection and inflammatory reaction due to other internal prosthetic devices, implants and grafts, initial encounter (principal); A41.9 Sepsis, unspecified organism; T87.44 Infection of amputation stump, left lower extremity; Z89.612 Acquired absence of left leg above knee; T87.54 Necrosis of amputation stump, left lower extremity; I70.25 Atherosclerosis of native arteries of other extremities with ulceration; F03.90 Unspecified dementia, unspecified severity, without behavioral disturbance, psychotic disturbance, mood disturbance, and anxiety; D64.9 Anemia, unspecified; K59.00 Constipation, unspecified; N40.0 Benign prostatic hyperplasia without lower urinary tract symptoms; Z74.01 Bed confinement status; Z66 Do not resuscitate; Z86.73 Personal history of transient ischemic attack (TIA), and cerebral infarction without residual deficits; F17.210 Nicotine dependence, cigarettes, uncomplicated; J44.9 Chronic obstructive pulmonary disease, unspecified; R32 Unspecified urinary incontinence